=== PATIENT | female | born 1980 | race Caucasian/White ===

== ENCOUNTER 2023-04-29 20:02 | Outpatient (REF) | payer OTHER, SELFPAY ==
[2023-05-02 15:10] LABS: Age Gdln ACOG Testing Note (.); HPV Aptima Negative (Negative); IGP, Aptima HPV, rfx 16/18,45 Note (.)
== END 2023-04-29 20:03 | disposition home or self-care (01) ==
LOC: LAB 20:02
PROVIDERS: PCP Family Medicine; Visit Provider Obstetrics & Gynecology
DX: Z12.4 Encounter for screening for malignant neoplasm of cervix (principal)
CPT/HCPCS: 87624; G0145

== ENCOUNTER 2023-05-10 08:00 | Outpatient (OUT) | payer OTHER, SELFPAY ==
--- NOTE | 2023-05-10 08:25 | MM_ITS ---
Patient: KASSANDRA ARIZMENDI Exam Date: 05/10/2023 : 1980 Gender:F Ordering : DR Brice Day . Admission #: [id number] Family : DR Louie Yates . Order #: [id number] CLICK HERE TO VIEW EXAM RADIOLOGY REPORT PROCEDURE: MM TOMOSYNTHESIS SCREENING BI COMPARISON: MG MAMM SCREEN 3D [place] CAD, 05/07/2022. INDICATIONS: Screening Calculator Name NCI Breast Cancer Risk Assessment Tool 5 Year Breast Cancer Risk 0.70% Lifetime Breast Cancer Risk 11.00% Personal Breast Cancer No Personal Ovarian Cancer No Treatments None Family Cancers Mother with rectal cancer at age 45. LOCATION: [facility] BREAST COMPOSITION: Extremely dense, which lowers the sensitivity of mammography. FINDINGS: DIAGNOSTIC CATEGORY 1--NEGATIVE. NO CHANGE FROM COMPARISON ASSESSMENT. Scattered benign-appearing calcifications are present. RIGHT BREAST: No significant suspicious finding. LEFT BREAST: No significant suspicious finding. RECOMMENDATIONS: ROUTINE MAMMOGRAM AND CLINICAL EVALUATION IN 12 MONTHS. PLEASE NOTE: A NORMAL MAMMOGRAM DOES NOT EXCLUDE THE POSSIBILITY OF BREAST CANCER. A CLINICALLY SUSPICIOUS PALPABLE LUMP SHOULD BE BIOPSIED. Dictated by: Devonte Perdomo MD on 05/10/2023 at 12:55 Approved by: Devonte Perdomo MD on 05/10/2023 at 12:56
== END 2023-05-10 08:01 | disposition home or self-care (01) ==
LOC: MAMMO 08:02
PROVIDERS: PCP Family Medicine; Visit Provider Obstetrics & Gynecology
DX: Z12.31 Encounter for screening mammogram for malignant neoplasm of breast (principal); Z80.0 Family history of malignant neoplasm of digestive organs
CPT/HCPCS: 77063; 77067

== ENCOUNTER 2024-05-04 21:16 | Outpatient (REF) | payer OTHER, SELFPAY | END 2024-05-04 21:17 | disposition home or self-care (01) | LOC: LAB 21:16 | PROVIDERS: Visit Provider Obstetrics & Gynecology | DX: Z01.419 Encounter for gynecological examination (general) (routine) without abnormal findings (principal) | CPT/HCPCS: 87624; 88175 ==

== ENCOUNTER 2024-05-13 07:19 | Outpatient (OUT) | payer OTHER, SELFPAY ==
--- NOTE | 2024-05-13 | MM_ITS ---
Patient Name: KASSANDRA ARIZMENDI MR#: [id number] : 1980 Exam Date: 05/13/2024 Ordering Doctor: DR Brice Day . RADIOLOGY REPORT PROCEDURE: MM TOMOSYNTHESIS SCREENING BI COMPARISON: MM TOMOSYNTHESIS SCREENING BI, 05/10/2023. MG MAMM SCREEN 3D [place] CAD, 05/07/2022. INDICATIONS: Screening for malignant neoplasm Calculator Name NCI Breast Cancer Risk Assessment Tool 5 Year Breast Cancer Risk 0.70% Lifetime Breast Cancer Risk 10.90% Personal Breast Cancer No Personal Ovarian Cancer No Treatments None Family Cancers Mother with rectal cancer at age 45. LOCATION: [facility] BREAST COMPOSITION: The breasts are extremely dense, which lowers the sensitivity of mammography. FINDINGS: DIAGNOSTIC CATEGORY 1--NEGATIVE. RIGHT BREAST: No significant suspicious finding. No significant change has occurred. LEFT BREAST: No significant suspicious finding. No significant change has occurred. RECOMMENDATIONS: ROUTINE MAMMOGRAM AND CLINICAL EVALUATION IN 12 MONTHS. PLEASE NOTE: A NORMAL MAMMOGRAM DOES NOT EXCLUDE THE POSSIBILITY OF BREAST CANCER. A CLINICALLY SUSPICIOUS PALPABLE LUMP SHOULD BE BIOPSIED. Dictated by: Yazan Steward M.D. on 05/13/2024 at 15:04 Approved by: Yazan Steward M.D. on 05/13/2024 at 15:07
--- OUTSIDE RECORDS SUMMARY | 2024-05-13 07:21 | XMS_ITS | CCD ---
Author Organization [facility] Care Team Providers Care Formulator Name Role Phone PERRI, DR MEGHA Swan Admitting Unavailable NADERER, DR MEGHA Swan Attending Unavailable NADERER, DR MEGHA Swan Consulting Unavailable NADERER, DR MEGHA Swan Primary Care Unavailable SUKHDEEP, DR MUNOZ Consulting Unavailable NADERER, DR MEGHA Swan Primary Care Unavailable SUKHDEEP, DR MUNOZ Admitting Unavailable SUKHDEEP, DR MUNOZ Attending Unavailable NADERER, DR MEGHA Swan Primary Care Unavailable KING SALMON, DR LENORE Looney Consulting Unavailable SUKHDEEP, DR MUNOZ Admitting Unavailable SUKHDEEP, DR MUNOZ Attending Unavailable SUKHDEEP, DR MUNOZ Consulting Unavailable APLINGYOSVANY Attending Unavailable APLINGYOSVANY Referring Unavailable TAMMY TARANGO Attending Unavailable Allergies Allergy Classification Reported Allergen(s) Allergy Type Date of Onset Reaction(s) Facility (1 source) Cefaclor Drug Allergy 1980 [facility] Repository Problems Problem Classification Problem Date Documented Date Episodic/Chronic Immunizations and screening for infectious disease (1 source) Encounter for screening for human papillomavirus (HPV); Translations: [ENC SCREENING HUMAN PAPILLOMAVIRUS] Onset: 04-25-2022 Episodic Nutritional deficiencies (1 source) Vitamin D deficiency, unspecified; Translations: [VITAMIN D DEFICIENCY UNSPECIFIED] Onset: 05-30-2022 Chronic Other screening for suspected conditions (not mental disorders or infectious disease) (8 sources) Encounter for screening mammogram for malignant neoplasm of breast; Translations: [Encounter for screening for malignant neoplasm of cervix] Onset: 04-24-2022 Episodic Residual codes; unclassified (1 source) Family history of malignant neoplasm of other organs or systems; Translations: [FAM HX MALIG NEOPLASM OTH ORGN/SYS] Onset: 05-09-2022 Episodic Results Test Name Value Interpretation Reference Range Facility CBC AUTO DIFFon 05-24-2022 BASO # 0.0 103/ul Normal 0.0-0.1 [facility] Comment on above: Performed By: #### C BC #### [facility] [address] [place] [address] Dr. Mounika Brown Basophils/100 WBC (Bld) 0.4 % Normal 0.2-2.0 [facility] Comment on above: Performed By: #### C BC #### [facility] [address] [place] [address] Dr. Mounika Brown EO # 0.2 103/ul Normal 0.0-0.7 [facility] Comment on above: Performed By: #### C BC #### [facility] [address] [place] [address] Dr. Mounika Brown Eosinophils/100 WBC (Bld) 2.2 % Normal 0.9-7.0 [facility] Comment on above: Performed By: #### C BC #### [facility] [address] [place] [address] Dr. Mounika Brown Erythrocyte distribution width (RBC) [Ratio] 12.8 % Normal 11.0-15.0 [facility] Comment on above: Performed By: #### C BC #### [facility] [address] [place] [address] Dr. Mounika Brown Hematocrit (Bld) [Volume fraction] 42.6 % Normal 36.0-48.0 [facility] Comment on above: Performed By: #### C BC #### [facility] [address] [place] [address] Dr. Mounika Brown Hemoglobin (Bld) [Mass/Vol] 14.0 g/dL Normal 12.0-16.0 [facility] Comment on above: Performed By: #### C BC #### [facility] [address] [place] [address] Dr. Mounika Brown IG # 0.02 10e3/ul Normal 0.00-0.03 [facility] Comment on above: Performed By: #### C BC #### [facility] [address] [place] [address] Dr. Mounika Brown IG % 0.3 % Normal 0.0-0.5 [facility] Comment on above: Performed By: #### C BC #### [facility] [address] [place] [address] Dr. Mounika Brown LYMPH # 3.1 103/ul Normal 1.2-3.8 [facility] Comment on above: Performed By: #### C BC #### [facility] [address] [place] [address] Dr. Mounika Brown Lymphocytes/100 WBC (Bld) 43.8 % Normal 20.5-60.0 [facility] Comment on above: Performed By: #### C BC #### [facility] [address] [place] [address] Dr. Mounika Brown MANUAL DIFF REQ NO Normal [facility] Comment on above: Performed By: #### C BC #### [facility] [address] [place] [address] Dr. Mounika Brown MCH (RBC) [Entitic mass] 29.7 pg Normal 26.7-34.0 [facility] Comment on above: Performed By: #### C BC #### [facility] [address] [place] [address] Dr. Mounika Brown MCHC (RBC) [Mass/Vol] 32.9 g/dL Normal 29.9-35.2 [facility] Comment on above: Performed By: #### C BC #### [facility] [address] [place] [address] Dr. Mounika Brown MCV (RBC) [Entitic vol] 90.3 fL Normal 81.0-99.0 [facility] Comment on above: Performed By: #### C BC #### [facility] [address] [place] [address] Dr. Mounika Brown MONO # 0.5 103/ul Normal 0.3-0.8 [facility] Comment on above: Performed By: #### C BC #### [facility] [address] [place] [address] Dr. Mounika Brown Monocytes/100 WBC (Bld) 6.8 % Normal 1.7-12.0 [facility] Comment on above: Performed By: #### C BC #### [facility] [address] [place] [address] Dr. Mounika Brown NEUT # 3.3 103/ul Normal 1.4-6.5 [facility] Comment on above: Performed By: #### C BC #### [facility] [address] [place] [address] Dr. Mounika Brown Neutrophils/100 WBC (Bld) 46.5 % Normal 43.0-75.0 [facility] Comment on above: Performed By: #### C BC #### [facility] [address] [place] [address] Dr. Mounika Brown Platelet mean volume (Bld) [Entitic vol] 10.8 fL Normal 9.5-13.5 [facility] Comment on above: Performed By: #### C BC #### [facility] [address] [place] [address] Dr. Mounika Brown PLT 266 103/ul Normal 150-450 [facility] Comment on above: Performed By: #### C BC #### [facility] [address] [place] [address] Dr. Mounika Brown RBC 4.72 106/ul Normal 4.20-5.40 [facility] Comment on above: Performed By: #### C BC #### [facility] [address] [place] [address] Dr. Mounika Brown WBC 7.2 103/ul Normal 4.0-11.0 [facility] Comment on above: Performed By: #### C BC #### [facility] [address] [place] [address] Dr. Mounika Brown GLYCOHEMOGLOBIN A1Con 2021 ADA RECOMMENDATION SEE BELOW Normal [facility] Comment on above: Result Comment: ADA RECOMMENDED LIMIT 4.0 - 6.0 ADA THERAPEUTIC TARGET < 7.0 ACTION SUGGESTED > 7.0 Performed By: #### A 1C #### [facility] [address] [place] [address] Dr. Mounika Brown Glucose [Mass/Vol] 105 mg/dL Normal [facility] Comment on above: Performed By: #### A 1C #### [facility] [address] [address] [address] Mounika Brown HbA1c (Bld) [Mass fraction] 5.3 % Normal 4.5-6.2 [facility] Comment on above: Performed By: #### A 1C #### [facility] [address] [address] [address] Mounika Brown LIPID PROFILEon 05-24-2022 CHOL-HDL RATIO NORM SEE BELOW Normal [facility] Comment on above: Result Comment: 3.3 - 4.4 LOW RISK 4.4 - 7.1 AVERAGE RISK 7.1 - 11.0 MODERATE RISK >11.0 HIGH RISK Performed By: #### L IVER, LIPID, BMP, TSH #### [facility] [address] [address] [address] Mounika Brown Cholesterol [Mass/Vol] 237 mg/dL Critically high <=200 [facility] Comment on above: Performed By: #### L IVER, LIPID, BMP, TSH #### [facility] [address] [address] [address] Mounika Brown Cholesterol in HDL [Mass/Vol] 89 mg/dL Critically high 40-60 [facility] Comment on above: Performed By: #### L IVER, LIPID, BMP, TSH #### [facility] [address] [address] [address] Mounika Brown Cholesterol in LDL [Mass/Vol] 138.2 mg/dL Normal [facility] Comment on above: Performed By: #### L IVER, LIPID, BMP, TSH #### [facility] [address] [address] [address] Mounika Brown Cholesterol.total/Cho lesterol in HDL [Mass ratio] 2.7 {ratio} Normal [facility] Comment on above: Performed By: #### L IVER, LIPID, BMP, TSH #### [facility] [address] [address] [address] Mounika Brown HDL NORMAL > or = 60 mg/dl - LO W CARDIOVASCULAR RISK <40 mg/dl - HIGH CARDIOVASCULAR RISK Normal [facility] Comment on above: Performed By: #### L IVER, LIPID, BMP, TSH #### [facility] [address] [address] [address] Mounika Brown LDL CALC NORMAL SEE BELOW Normal [facility] Comment on above: Result Comment: <100 mg/dl OPTIMAL 100 - 129 mg/dl NEAR OR ABOVE OPTIMAL 130 - 159 mg/dl BORDERLINE HIGH 160 - 189 mg/dl HIGH >190 mg/dl VERY HIGH Performed By: #### L IVER, LIPID, BMP, TSH #### [facility] [address] [address] [address] Mounika Brown Triglyceride [Mass/Vol] 49 mg/dL Normal <=150 [facility] Comment on above: Performed By: #### L IVER, LIPID, BMP, TSH #### [facility] [address] [address] [address] Mounika Brown VLDL CALC 9.8 mg/dL Normal [facility] Comment on above: Performed By: #### L IVER, LIPID, BMP, TSH #### [facility] [address] [address] [address] Mounika Brown LIVER PROFILEon 05-24-2022 Albumin [Mass/Vol] 4.3 g/dL Normal 3.4-5.0 [facility] Comment on above: Performed By: #### L IVER, LIPID, BMP, TSH #### [facility] [address] [address] [address] Mounika Brown Albumin/Globulin [Mass ratio] 1.2 {ratio} Normal [facility] Comment on above: Performed By: #### L IVER, LIPID, BMP, TSH #### [facility] [address] [address] [address] Mounika Brown ALP [Catalytic activity/Vol] 49 U/L Normal 46-116 [facility] Comment on above: Performed By: #### L IVER, LIPID, BMP, TSH #### [facility] [address] [address] [address] Mounika Brown ALT [Catalytic activity/Vol] 17 U/L Normal 14-59 [facility] Comment on above: Performed By: #### L IVER, LIPID, BMP, TSH #### [facility] [address] [address] [address] Mounika Brown AST [Catalytic activity/Vol] 19 U/L Normal 15-37 [facility] Comment on above: Performed By: #### L IVER, LIPID, BMP, TSH #### [facility] [address] [address] [address] Mounika Brown BILI, CONJUGATED 0.2 mg/dL Normal 0.0-0.2 [facility] Comment on above: Performed By: #### L IVER, LIPID, BMP, TSH #### [facility] [address] [place] [address] Dr. Mounika Brown Bilirubin [Mass/Vol] 1.0 mg/dL Normal 0.2-1.0 [facility] Comment on above: Performed By: #### L IVER, LIPID, BMP, TSH #### [facility] [address] [place] [address] Dr. Mounika Brown Globulin (S) [Mass/Vol] 3.6 g/dL Normal [facility] Comment on above: Performed By: #### L IVER, LIPID, BMP, TSH #### [facility] [address] [place] [address] Dr. Mounika Brown Protein [Mass/Vol] 7.9 g/dL Normal 6.4-8.2 [facility] Comment on above: Performed By: #### L IVER, LIPID, BMP, TSH #### [facility] [address] [place] [address] Dr. Mounika Brown PROF CHEM 8 (BAS METB)on Anion gap [Moles/Vol] 14.2 mmol/L Normal [facility] Comment on above: Performed By: #### L IVER, LIPID, BMP, TSH #### [facility] [address] [place] [address] Dr. Mounika Brown Calcium [Mass/Vol] 9.3 mg/dL Normal 8.5-10.1 [facility] Comment on above: Performed By: #### L IVER, LIPID, BMP, TSH #### [facility] [address] [address] [address] Mounika Brown Chloride [Moles/Vol] 102 mmol/L Normal 98-107 [facility] Comment on above: Performed By: #### L IVER, LIPID, BMP, TSH #### [facility] [address] [place] [address] Dr. Mounika Brown CO2 [Moles/Vol] 24.1 mmol/L Normal 21.0-32.0 [facility] Comment on above: Performed By: #### L IVER, LIPID, BMP, TSH #### [facility] [address] [place] [address] Dr. Mounika Brown Creatinine [Mass/Vol] 0.81 mg/dL Normal 0.55-1.02 [facility] Comment on above: Performed By: #### L IVER, LIPID, BMP, TSH #### [facility] [address] [place] [address] Dr. Mounika Brown EGFR-AF ENGLISH >60 Normal >=60 [facility] Comment on above: Performed By: #### L IVER, LIPID, BMP, TSH #### [facility] [address] [place] [address] Dr. Mounika Brown EGFR-NON AF ENGLISH >60 Normal >=60 [facility] Comment on above: Performed By: #### L IVER, LIPID, BMP, TSH #### [facility] [address] [place] [address] Dr. Mounika Brown Glucose [Mass/Vol] 80 mg/dL Normal 74-106 [facility] Comment on above: Performed By: #### L IVER, LIPID, BMP, TSH #### [facility] [address] [place] [address] Dr. Mounika Brown Potassium [Moles/Vol] 3.3 mmol/L Critically low 3.5-5.1 [facility] Comment on above: Performed By: #### L IVER, LIPID, BMP, TSH #### [facility] [address] [place] [address] Dr. Mounika Brown Sodium [Moles/Vol] 137 mmol/L Normal 136-145 [facility] Comment on above: Performed By: #### L IVER, LIPID, BMP, TSH #### [facility] [address] [place] [address] Dr. Mounika Brown Urea nitrogen [Mass/Vol] 17.0 mg/dL Normal 7.0-18.0 [facility] Comment on above: Performed By: #### L IVER, LIPID, BMP, TSH #### [facility] [address] [place] [address] Dr. Mounika Brown Urea nitrogen/Creatinine [Mass ratio] 21.0 mg/mg Normal [facility] Comment on above: Performed By: #### L IVER, LIPID, BMP, TSH #### [facility] [address] [place] [address] Dr. Mounika Brown TSHon 05-24-2022 TSH 2.290 uIU/mL Normal 0.358-3.[address] [facility] Comment on above: Performed By: #### L IVER, LIPID, BMP, TSH #### [facility] [address] [place] [address] Dr. Mounika Brown VITAMIN D 25 OHon 05-24-2022 VIT D 25-OH 29.1 ng/mL Normal [facility] Comment on above: Performed By: #### V ITAD #### [facility] [address] [place] [address] Dr. Mounika Brown VIT D RANGES SEE BELOW Normal [facility] Comment on above: Result Comment: <20 ng/mL Vit D deficient 20 - <30 ng/mL Vit D insufficient 30 - 100 ng/mL Vit D sufficient >100 ng/mL Potential Toxicity Performed By: #### V ITAD #### [facility] [address] [place] [address] Dr. Mounika Brown MG MAMM SCREEN 3D WYATT CADon 05-07-2022 MG MAMM SCREEN 3D WYATT CAD Patient: KASSANDRA ARIZMENDI Exam Date: 05/07/2022 : 1980 Gender:F Ordering : DR TAMMY TARANGO . Admission #: [id number] Family : Order #: [id number] CLICK HERE TO VIEW EXAM RADIOLOGY REPORT PROCEDURE: MAMMOGRAM SCREENING 3D BILATERAL CAD COMPARISON: None. INDICATIONS: Screening mammography Calculator Name NCI Breast Cancer Risk Assessment Tool 5 Year Breast Cancer Risk 0.60% Lifetime Breast Cancer Risk 11.10% Personal Breast Cancer No Personal Ovarian Cancer No Treatments None Family Cancers Mother with retina cancer at age 45. LOCATION: [facility] BREAST COMPOSITION: Extremely dense, which lowers the sensitivity of mammography. FINDINGS: DIAGNOSTIC CATEGORY 1--NEGATIVE. Scattered benign-appearing calcifications are present. RIGHT BREAST: No significant suspicious finding. LEFT BREAST: No significant suspicious finding. RECOMMENDATIONS: ROUTINE MAMMOGRAM AND CLINICAL EVALUATION IN 12 MONTHS. PLEASE NOTE: A NORMAL MAMMOGRAM DOES NOT EXCLUDE THE POSSIBILITY OF BREAST CANCER. A CLINICALLY SUSPICIOUS PALPABLE LUMP SHOULD BE BIOPSIED. Dictated by: Lenore Perdomo MD on 05/07/2022 at 10:26 Approved by: Lenore Perdomo MD on 05/07/2022 at 10:27 Normal [facility] PAP ACOG PANEL 2: 30 to 65on 05-01-2022 . . Normal [facility] Comment on above: Result Comment: Perf ormed at: WB Performed By: #### [id number] #### [facility] [address] [place] [address] Dr. Mounika Brown Age Gdln ACOG Testing 30-65 Normal [facility] Comment on above: Performed By: #### [id number] #### [facility] [address] [place] [address] Dr. Mounika Brown DIAGNOSIS: Comment Normal [facility] Comment on above: Result Comment: NEGA TIVE FOR INTRAEPITHELIAL LESION OR MALIGNANCY. Performed at: WB Performed By: #### [id number] #### [facility] [address] [address] [address] Mounika Brown HPV Aptima Negative Normal Negative [facility] Comment on above: Result Comment: This nucleic acid amplification test detects fourteen high-risk HPV types (16,18,31,33,35,39,45,51,52,56,58,59,66,68) without differentiation. Performed at: =G Performed By: #### [id number] #### [facility] [address] [address] [address] Mounika Brown Methodology: Comment Normal [facility] Comment on above: Result Comment: This liquid based ThinPrep(R) pap test was screened with the use of an image guided system. Performed at: WB Performed By: #### [id number] #### [facility] [address] [address] [address] Mounika Brown Note: Comment Normal [facility] Comment on above: Result Comment: The Pap smear is a screening test designed to aid in the detection of premalignant and malignant conditions of the uterine cervix. It is not a diagnostic procedure and should not be used as the sole means of detecting cervical cancer. Both false-positive and false-negative reports do occur. . Performed at: WB Performed By: #### [id number] #### [facility] [address] [place] [address] Dr. Mounika Brown Performed by: Comment Normal [facility] Comment on above: Result Comment: Daniel Saravia, [employer] (ASCP) Performed at: WB Performed By: #### [id number] #### [facility] [address] [address] [address] Mounika Brown Specimen adequacy: Comment Normal [facility] Comment on above: Result Comment: Sati sfactory for evaluation. Endocervical and/or squamous metaplastic cells (endocervical component) are present. Performed at: WB Performed By: #### [id number] #### [facility] [address] [place] [address] Dr. Mounika Brown Encounters Encounter Date Encounter Type Care Provider Facility Start: 05-04-2024 End: 05-04-2024 ambulatory TAMMY TARANGO Not Available Start: 08-21-2023 End: 08-21-2023 ambulatory YOSVANY PARIS Not Available Start: 05-30-2022 Encounter for genera l adult medical examination without abnormal findings DR MEGHA RAYO [facility] Start: 05-24-2022 End: 05-25-[address] MEGHA RAYO Facility: Start: 05-24-2022 End: 05-25-2022 Encounter for general adult medical examination without abnormal findings DR MEGHA RAYO Facility:[facility] Start: 05-07-2022 End: 05-08-[address] MEGHA RAYO Facility:[facility] Start: 04-24-2022 End: 04-24-[address] TAMMY TARANGO Facility:[facility] Payers Date Payer Category Payer Unknown [id number] 2.16.84 [id number] 1980 Unknown [id number] 2.16.84 [id number] 1980 Unknown [id number] 2.16.84 [id number] 1980 Unknown [id number] 2.16.84 [id number] 1980 Unknown [id number] 2.16.84 [id number] 1980 Unknown [id number] 2.16.84 [id number] 1957 Unknown [id number] Summary Purpose Family History No Family History Records FoundNo Family History Records Found Advance Directives No Advanced Directives Records FoundNo Advanced Directives Records Found Additional Source Comments INFORMATION SOURCE (unrecogn ized section and content) DATE CREATED AUTHOR [facility]/31/2022 [facility] DATE CREATED AUTHOR 'S ORGANIZ ATION 05/04/2024 [facility] EPIC FOR RECORDS PERTAINING TO PATIENTS WHO ARE OR HAVE BEEN ENROLLED IN A CHEMICAL DEPENDENCY/SUBSTANCEABUSE PROGRAM, SOME INFORMATION MAY BE OMITTED. This clinical summary was aggregated from multiple sources. Caution should be exercised in using it in the provision of clinical care. This summary normalizes information from multiple sources, and as a consequence, information in this document may materially change the coding, format and clinical context of patient data. In addition, data may be omitted in some cases. CLINICAL DECISIONS SHOULD BE BASED ON THE PRIMARY CLINICAL RECORDS. [facility] [employer] [facility]. provides no warranty or guarantee of the accuracy or completeness of information in this document.
== END 2024-05-13 07:20 | disposition home or self-care (01) ==
LOC: MAMMO 07:19
PROVIDERS: Visit Provider Obstetrics & Gynecology
DX: Z12.31 Encounter for screening mammogram for malignant neoplasm of breast (principal); Z80.8 Family history of malignant neoplasm of other organs or systems
CPT/HCPCS: 77063; 77067

== ENCOUNTER 2025-06-08 12:02 | Outpatient (REF) | payer OTHER, SELFPAY ==
--- OUTSIDE RECORDS SUMMARY | 2025-06-08 08:30 | XMS_ITS | Encounter Summary ---
Author Organization [facility] Address [address] [facility] [place] [address] Care Team Providers Care Oil Rig Roughneck Name Role Phone Louie Yates MD Primary Care Provider [phone] Reason for Visit * ReasonCommentsGynecologic Exam Encounter Details DateTypeDepartmentCare Team (Latest Contact Info)Fhvrfebeacc67/04/2025 8:30 AM ESTOffice Visit [facility] [address] [place] [phone] Brice Day DO [address] [place] [address] Well woman exam with routine gynecological exam; Encounter for screening mammogram for malignant neoplasm of breast Social History Tobacco UseTypesPacks/DayYears UsedDateSmoking Tobacco: NeverSmokeless Tobacco: NeverAlcohol UseStandard Drinks/WeekCommentsYes0 (1 standard drink = 0.6 oz pure alcohol)Only on special occasionsCommentsNoSex and Gender Information ValueDate RecordedSex Assigned at BirthNot on fileLegal IdoTnlaek04/15/2023 6:55 PM EDTGender IdentityNot on fileSexual OrientationNot on filedocumented as of this encounter Last Filed Vital Signs Vital SignReadingTime TakenCommentsBlood Pressure--Pulse--Temperature-- Respiratory Rate--Oxygen Saturation--Inhaled Oxygen Concentration--Goxngb39.1 kg (148 lb)06/08/2025 8:37 AM LNGDmfzpn032.2 cm (5' 7 )06/08/2025 8:37 AM ESTBody Mass Index23.18108/08/2024 8:37 AM ESTdocumented in this encounter Plan of Treatment DateTypeDepartmentCare Team (Latest Contact Info)Xgcyhxfyxar36/10/2026 8:30 AM ESTProcedure Visit [facility] [address] [facility] [place] [address] Brice Day DO [address] [facility] [place] [address] NameTypePriorityAssociated DiagnosesOrder ScheduleBilateral screening mammogram ImagingRoutine Encounter for screening mammogram for malignant neoplasm of breast Expected: 06/08/2025 (Approximate), Expires: 08/08/2026THIN PREP TIS PAP AND HR HPV DNAPathology and CytologyRoutine Well woman exam with routine gynecological exam Ordered: 06/08/2025documented as of this encounter Visit Diagnoses Diagnosis Well woman exam with routine gynecological exam Routine gynecological examination Encounter for screening mammogram for malignant neoplasm of breast documented in this encounter Care Teams Team MemberRelationshipSpecialtyStart DateEnd Date Louie Yates MD PCP - GeneralFamily Medicine09/05/23documented as of this encounter
--- OUTSIDE RECORDS SUMMARY | 2025-06-08 12:05 | XMS_ITS | Clinical Summary ---
Author Organization [facility] Address [address] [place] [address] Care Team Providers Care Fruit Distributor Name Role Phone Louie Yates MD Primary Care Provider [phone] Allergies Active AllergyReactionsCriticalityNoted KhqgVgpsgunmQtmubleqHgtqilb92/25/2023 Other Reaction(s): Unknown Reaction Medications No known medications Active Problems No known active problems Encounters DateTypeDepartmentCare IrwlWeqbbkcnomw03/04/2025 8:30 AM ESTOffice Visit [facility] [address] [place] [address] Brice Day DO Well woman exam with routine gynecological exam; Encounter for screening mammogram for malignant neoplasm of xgqqvd3106/08/2025 Bamboo flowsheet [facility] [address] [place] [address] Brice Day DO 06/07/20256270Yueakn69/24/2025 7:30 AM EDTTreatment [facility] [address] [facility] [address] [place] [address] Nico Elkins, LEAD SYSTEMS DEVELOPER Right ankle pain, unspecified chronicity (Primary Dx); Retrocalcaneal bursitis, right; Mild ankle sprain, right, kkhmobb8804/28/2025amboo flowsheet [facility] [address] [place] [address] [place] [address] Nico Elkins, LEAD SYSTEMS DEVELOPER 04/28/20257707Wsuyxj41/18/2025 9:00 AM EDTEvaluation [facility] [address] [facility] [address] [place] [address] Kathryn Fernandez, PT Right ankle pain, unspecified chronicity (Primary Dx); Retrocalcaneal bursitis, right; Mild ankle sprain, right, gofdpob8904/22/2025Plan of Care Documentation [facility] [address] [facility] [address] [place] [address] 04/22/2025amboo flowsheet [facility] [address] [facility] [address] [place] [address] Kathryn Fernandez, PT 04/22/20257713Vavdbr97/03/2025 2:15 PM EDTOffice Visit [facility] [address] [facility] [place] [phone] Devonte Dillon, DO Right ankle pain, unspecified chronicity (Primary Dx); Retrocalcaneal bursitis, right; Mild ankle sprain, right, brtvnke4404/07/2025 11:05 AM EDTAncillary Procedure [facility] [address] [facility] [place] [address] 04/07/20259111Dqjgnx81/29/2025Travelfrom Last 3 Months Family History Medical HistoryRelationNameCommentsAnal CancerMotherCathierine RathbunDiabetes MotherCathierine RathbunRelationNameStatusCommentsFatherAliveMotherCathierine RathbunAlive Social History Tobacco UseTypesPacks/DayYears UsedDateSmoking Tobacco: NeverSmokeless Tobacco: Never Tobacco Cessation:Counseling Given: Not Answered Alcohol UseStandard Drinks/WeekCommentsYes0 (1 standard drink = 0.6 oz pure alcohol)Only on special occasionsCommentsNoSex and Gender Information ValueDate RecordedSex Assigned at BirthNot on fileLegal QntHmorhe44/15/2023 6:55 PM EDTGender IdentityNot on fileSexual OrientationNot on file Last Filed Vital Signs Vital SignReadingTime TakenCommentsBlood Owgtieml070/8209/ 8:35 AM EDT Pulse--Temperature--Respiratory Rate--Oxygen Saturation--Inhaled Oxygen Concentration--Zyvkne26.1 kg (148 lb)06/08/2025 8:37 AM EJLReftjv407.2 cm (5' 7 )06/08/2025 8:37 AM ESTBody Mass Index23.18108/08/2024 8:37 AM EST Plan of Treatment DateTypeDepartmentCare Team (Latest Contact Info)Veninxehfgw57/10/2026 8:30 AM ESTProcedure Visit [facility] [address] [facility] [place] [phone] Brice Day, [address] [facility] [place] [address] Procedures Procedure NamePriorityDate/TimeAssociated DiagnosisCommentsXR ANKLE 3+ VIEWS KCWHQDigbbnw93/03/2025 11:01 AM EDT Right ankle pain, unspecified chronicity from Last 3 Months Results * XR ankle 3+ views right (04/07/2025 11:01 AM EDT)Anatomical RegionLaterality ModalityLower Extremities, AnkleRightRadiographic ImagingSpecimen (Source) Anatomical Location / LateralityCollection Method / VolumeCollection Time Received Time Narrative 04/09/2025 7:40 AM EDT Imaging Result: Examination of the x-rays AP, lateral and oblique of the right ankle here today total of three views with permanent images are saved to the record coupled with previous films from [facility] in August of 2023 does show some spurring off the tip of the medial and lateral malleolus. ??Ankle mortise is well maintained. ?? No evidence of fracture or instability pattern. ?? Authorizing ProviderResult TypeResult StatusDavid A Pocos DOIMG XR PROCEDURES Final Result from Last 3 Months Insurance * Guarantor: Margoth Charles TypeRelation to PatientDate of BirthPhone Billing AddressPersonal/ZjzijiLtbq1980 [address] [address] Care Teams Team MemberRelationshipSpecialtyStart DateEnd Date Louie Yates MD PCP - GeneralFamily Medicine09/05/23
--- OUTSIDE RECORDS SUMMARY | 2025-06-08 12:05 | XMS_ITS | Encounter Summary ---
Author Organization [facility] Address [address] [facility] [place] [address] Care Team Providers Care Silver Steward Name Role Phone Louie Yates MD Primary Care Provider [phone] Encounter Details DateTypeDepartmentCare Team (Latest Contact Info)Zuwphfezhqd75/09/2024Clinisync Result Encounter [facility] External Department Unsolicited Brice Day, DO [address] [place], [place] [phone] Social History Tobacco UseTypesPacks/DayYears UsedDateSmoking Tobacco: NeverSmokeless Tobacco: NeverAlcohol UseStandard Drinks/WeekCommentsYes0 (1 standard drink = 0.6 oz pure alcohol)Only on special occasionsCommentsNoSex and Gender Information ValueDate RecordedSex Assigned at BirthNot on fileLegal VprBxgige93/15/2023 6:55 PM EDTGender IdentityNot on fileSexual OrientationNot on filedocumented as of this encounter Plan of Treatment DateTypeDepartmentCare Team (Latest Contact Info)Rvhylyxooiw88/10/2026 8:30 AM ESTProcedure Visit [facility] [address] [place] [address] Brice Day DO [address] [place] [address] documented as of this encounter Procedures Procedure NamePriorityDate/TimeAssociated DiagnosisCommentsMM TOMOSYNTHESIS SCREENING BI10/04/2024 3:08 PM EDT documented in this encounter Results * MM TOMOSYNTHESIS SCREENING BI (05/13/2024 3:08 PM EDT)Anatomical Region LateralityModalityOtherSpecimen (Source)Anatomical Location / Laterality Collection Method / VolumeCollection TimeReceived Time05/13/2024 3:08 PM EDT Narrative 05/13/2024 3:08 PM EDT [facility] ?[address] ? [place], [facility] ? Mammography Report ? Signed ? Patient: MAHL,MARGOTH L ?MR#: [id number] ?? : 1980 ?Acct:[id number] ?? Age/Sex: 44 / F ?ADM Date: 05/13/24 ?? Loc: MAMMO ? Attending Dr: Brice Day D.O. ? Ordering Physician: Brice Day D.O. ?Results: ? Date of Service: 05/13/24 ?Follow Up: ? Procedure(s): MM tomosynthesis screening BI ?? Accession Number(s): [id number] ? cc: Brice Day D.O.; Physician,Non-Staff M.D. ? Patient Name: ? MARGOTH MAHL ? MR#: [id number] ? : 1980 ? Exam Date: 05/13/2024 ?? Ordering Doctor: DR Brice Day . ? RADIOLOGY REPORT ? PROCEDURE: ? MM TOMOSYNTHESIS SCREENING BI ? COMPARISON: ? MM TOMOSYNTHESIS SCREENING BI, 05/10/2023. ??MG MAMM SCREEN 3D ?? [place] CAD, 05/07/2022. ? INDICATIONS: ? Screening for malignant neoplasm ? Calculator Name ? NCI Breast Cancer Risk Assessment Tool ?? 5 Year Breast Cancer Risk ? 0.70% ?? Lifetime Breast Cancer Risk ? 10.90% ?? Personal Breast Cancer ?No ?? Personal Ovarian Cancer ? No ?? Treatments ? None ?? Family Cancers ? Mother with rectal cancer at age 45. ? LOCATION: ? [facility] ? BREAST COMPOSITION: ? The breasts are extremely dense, which lowers the ?? sensitivity of mammography. ? FINDINGS: ? DIAGNOSTIC CATEGORY 1--NEGATIVE. ? RIGHT BREAST: ??No significant suspicious finding. ??No significant change has ?? occurred. ? LEFT BREAST: ??No significant suspicious finding. ??No significant change has ?? occurred. ? RECOMMENDATIONS: ? ROUTINE MAMMOGRAM AND CLINICAL EVALUATION IN 12 MONTHS. ? PLEASE NOTE: ??A NORMAL MAMMOGRAM DOES NOT EXCLUDE THE POSSIBILITY OF BREAST ?? CANCER. ??A CLINICALLY SUSPICIOUS PALPABLE LUMP SHOULD BE BIOPSIED. ? Dictated by: Yazan Steward M.D. on 05/13/2024 at 15:04 ? Approved by: Yazan Steward M.D. on 05/13/2024 at 15:07 ? Dictated By: ?Zieber,Yazan M.D. ? Signed By: ?05/13/24 1508 ? DD/ 1508 ? TD/TT: ? Land Inspector: Procedure Note Radiology, Radiologist, MD - 05/13/2024 [place] [address] Mammography Report Signed Patient: MARGOTH ARIZMENDI LMR#: [id number] : 1980Acct:[id number] Age/Sex: 44 / FADM Date: 05/13/24 Loc: MAMMO Attending Dr: Brice Day D.O. Ordering Physician: Brice Day D.O.Results: Date of Service: 05/13/24Follow Up: Procedure(s): MM tomosynthesis screening BI Accession Number(s): [id number] cc: Brice Day D.O.; Physician,Non-Staff Concepción Patient Name: MARGOTH ARIZMENDI MR#: [id number] : 1980 Exam Date: 05/13/2024 Ordering Doctor: DR Brice Day . RADIOLOGY REPORT PROCEDURE: MM TOMOSYNTHESIS SCREENING BI COMPARISON: MM TOMOSYNTHESIS SCREENING BI, 05/10/2023. MG MAMM LMXKVF5R [place] CAD, 05/07/2022. INDICATIONS: Screening for malignant neoplasm Calculator Name NCI Breast Cancer Risk Assessment Tool 5 Year Breast Cancer Risk 0.70% Lifetime Breast Cancer Risk 10.90% Personal Breast Cancer No Personal Ovarian Cancer No Treatments None Family Cancers Mother with rectal cancer at age 45. LOCATION: [facility] BREAST COMPOSITION: The breasts are extremely dense, which lowers the sensitivity of mammography. FINDINGS: DIAGNOSTIC CATEGORY 1--NEGATIVE. RIGHT BREAST: No significant suspicious finding. No significant changehas occurred. LEFT BREAST: No significant suspicious finding. No significant changehas occurred. RECOMMENDATIONS: ROUTINE MAMMOGRAM AND CLINICAL EVALUATION IN 12 MONTHS. PLEASE NOTE: A NORMAL MAMMOGRAM DOES NOT EXCLUDE THE POSSIBILITY OFBREAST CANCER. A CLINICALLY SUSPICIOUS PALPABLE LUMP SHOULD BE BIOPSIED. Dictated by: Yazan Steward M.D. on 05/13/2024 at 15:04 Approved by: Yazan Steward M.D. on 05/13/2024 at 15:07 Dictated By: Yazan Steward M.D. Signed By:05/13/24 1508 DD/ 1508 TD/TT: Land Inspector: Authorizing ProviderResult TypeResult StatusCorey Barb DOCLINISYNC IMAGINGFinal Result documented in this encounter Visit Diagnoses Not on filedocumented in this encounter Care Teams Team MemberRelationshipSpecialtyStart DateEnd Date Louie Yates MD PCP - GeneralFamily Medicine09/05/23documented as of this encounter
--- OUTSIDE RECORDS SUMMARY | 2025-06-08 12:05 | XMS_ITS | Encounter Summary ---
Author Organization [facility] Address [address] [facility] [place] [address] Care Team Providers Care Patternmaker All Around Name Role Phone Louie Yates MD Primary Care Provider [phone] Encounter Details DateTypeDepartmentCare Team (Latest Contact Info)Addgvqjeerl59/04/2025amboo flowsheet [facility] [address] [place] [address] rBice Day, DO [address] [facility] [address] [place], [place] [address] Social History Tobacco UseTypesPacks/DayYears UsedDateSmoking Tobacco: NeverSmokeless Tobacco: NeverAlcohol UseStandard Drinks/WeekCommentsYes0 (1 standard drink = 0.6 oz pure alcohol)Only on special occasionsCommentsNoSex and Gender Information ValueDate RecordedSex Assigned at BirthNot on fileLegal JzmPpcdmm10/15/2023 6:55 PM EDTGender IdentityNot on fileSexual OrientationNot on filedocumented as of this encounter Plan of Treatment DateTypeDepartmentCare Team (Latest Contact Info)Tlgsfcrbmeo13/10/2026 8:30 AM ESTProcedure Visit [facility] [address] [place] [address] Brice Day, DO [address] [place], [facility] documented as of this encounter Visit Diagnoses Not on filedocumented in this encounter Care Teams Team MemberRelationshipSpecialtyStart DateEnd Date Louie Yates MD PCP - GeneralFamily Medicine09/05/23documented as of this encounter
--- OUTSIDE RECORDS SUMMARY | 2025-06-08 12:05 | XMS_ITS | Encounter Summary ---
Author Organization [facility] Address [address] [facility] [place] [address] Care Team Providers Care Core Inspector Name Role Phone Louie Yates MD Primary Care Provider [phone] Encounter Details DateTypeDepartmentCare Team (Latest Contact Info)Zksamzbawlt49/03/2025Travel Social History Tobacco UseTypesPacks/DayYears UsedDateSmoking Tobacco: NeverSmokeless Tobacco: NeverAlcohol UseStandard Drinks/WeekCommentsYes0 (1 standard drink = 0.6 oz pure alcohol)Only on special occasionsCommentsNoSex and Gender Information ValueDate RecordedSex Assigned at BirthNot on fileLegal CgxYqtypk28/15/2023 6:55 PM EDTGender IdentityNot on fileSexual OrientationNot on filedocumented as of this encounter Plan of Treatment DateTypeDepartmentCare Team (Latest Contact Info)Ajgvcobrqnt48/10/2026 8:30 AM ESTProcedure Visit [facility] [address] [place] [phone] Brice Day DO [address] [facility] [address] [place], [place] [phone] documented as of this encounter Visit Diagnoses Not on filedocumented in this encounter Care Teams Team MemberRelationshipSpecialtyStart DateEnd Date Louie Yates MD PCP - GeneralFamily Medicine09/05/23documented as of this encounter
--- OUTSIDE RECORDS SUMMARY | 2025-06-08 12:08 | XMS_ITS | CCD ---
Author Organization [facility] Care Team Providers Care Refrigeration Operator Name Role Phone PERRI, DR LOUIE Swan Admitting Unavailable NADERER, DR LOUIE Swan Attending Unavailable NADERER, DR LOUIE Swan Consulting Unavailable NADERER, DR LOUIE Swan Primary Care Unavailable BARB, DR MUNOZ Consulting Unavailable NADERER, DR LOUIE Swan Primary Care Unavailable BARB, DR MUNOZ Admitting Unavailable BARB, DR MUNOZ Attending Unavailable NADERER, DR LOUIE Swan Primary Care Unavailable [place], DR LENORE Looney Consulting Unavailable BARB, DR MUNOZ Admitting Unavailable BARB, DR MUNOZ Attending Unavailable BARB, DR MUNOZ Consulting Unavailable Louie Yates MD Primary Care Provider [phone] Ly DOGinny Attending Provider Ly Ginny BISHOP Referring Provider Louie Yates MD Primary Care Provider [phone] Maru Ginny L Consulting Unavailable Ginny Mahoney Attending Unavailable Ginny Mahoney Referring Unavailable Louie Yates Primary Care Unavailable Ginny Mahoney Admitting Unavailable Louie Yates MD Primary Care Provider NICO SALAZAR Attending Unavailable POCOSLENORE Referring Unavailable ANA FERNANDEZ Attending Unavailable POCOS, LENORE Swan Referring Unavailable POCOS, LENORE Swan Attending Unavailable POCOSLENORE Referring Unavailable TAMMY DAY Attending Unavailable Allergies Allergy ClassificationReported Allergen(s)Allergy TypeDate of OnsetReaction(s) Facility (1 source)CefaclorDrug Iayhtkx99-27-3090Cmk [facility] Repository (12 sources)CefaclorDrug Entqkof78-00-2998RpttqlaFPFU Healthcare (1 source)CefaclorDrug Cicpktt88-46-8149ZhstobtcoUniversity Hospitals Conneaut [facility] Repository Medications Current Medications MedicationDrug Class(es)DatesSig (Normalized)Sig (Original)meloxicam 7.5 mg oral tablet (6 sources)Nonsteroidal Anti-inflammatory DrugStart: 04-07-2025 End: 93-95-9512gqww 1 tablet by mouth once daily at mealtimemeloxicam (Mobic) 7.5 MG tablet Indications: Right ankle pain, unspecified chronicity , Retrocalcaneal bursitis, right , Mild ankle sprain, right, sequela Take 1 tablet (7.5 mg) by mouth Daily With food. 30 tablet 2 04/07/2025 05/07/2025 Active Problems Active Problems Problem ClassificationProblemDateDocumented DateEpisodic/ChronicImmunizations and screening for infectious disease (1 source)Encounter for screening for human papillomavirus (HPV); Translations: [ENC SCREENING HUMAN PAPILLOMAVIRUS]Onset: 50-07-0381YilicqpjUzvprowdilj deficiencies (1 source)Vitamin D deficiency, unspecified; Translations: [VITAMIN D DEFICIENCY UNSPECIFIED]Onset: 46-21-9339XfvbupmGfodb connective tissue disease (6 sources)Retrocalcaneal bursitis of right foot; Translations: [Other enthesopathy of right foot and ankle]04-97-1874SbqlfgnnEhkut non-traumatic joint disorders (6 sources)Ankle pain; Translations: [Pain in right ankle and joints of right foot]46-12-3163DnesiaqjJsahf screening for suspected conditions (not mental disorders or infectious disease) (11 sources)Encounter for screening mammogram for malignant neoplasm of breast; Translations: [Encounter for screening for malignant neoplasm of cervix]Onset: 65-58-7617QmuhwmwsWuzmiyav codes; unclassified (1 source)Family history of malignant neoplasm of other organs or systems; Translations: [FAM HX MALIG NEOPLASM OTH ORGN/SYS]Onset: 15-37-1357Zrxlvknr Sprains and strains (4 sources)Sprain of right ankle; Translations: [Sprain of unspecified ligament of right ankle, sequela]63-66-1014Yqqeyqqv Past or Other Problems Problem ClassificationProblemDateDocumented DateEpisodic/ChronicUnclassified (2 sources)Sprain of right kitsi51-72-3625 Results Test NameValueInterpretationReference RangeFacilityHCG ( test) IA.rapid Ql (U)Ordered By: Ginny Mahoney on 49-11-0947SAO ( test) Ql (U)Urine human chorionic gonadotropin (hCG) detection by immunoassayUniversity Hospitals Conneaut Medical CenterHCG,Urineon 08-96-7207Oujo HCG ( test) Ql (U)Negative NormalThe [facility] Physician GroupComment on above:Result Comment: PERFORMED BY: [place] [address] PATHOLOGIST MANAGER PAYMENT VJ HERNANDEZ M.D.Performed By: #### UHCG #### [place] [address] USAMM TOMOSYNTHESIS SCREENING BIon 64-47-4642IcjHouston, [place] [address] Mammography Report Signed Patient: KASSANDRA CHARLES MR#: [id number] : 1980 Acct:[id number] Age/Sex: 44 / F ADM Date: 05/13/24 Loc: MAMMO Attending Dr: Tammy Day D.O. Ordering Physician: Tammy Day D.O. Results: Date of Service: 05/13/24 Follow Up: Procedure(s): MM tomosynthesis screening BI Accession Number(s): [id number] cc: Tammy Day D.O.; Physician,Non-Staff MHugh Patient Name: KASSANDRA CHARLES MR#: [id number] : 1980 Exam Date: 05/13/2024 Ordering Doctor: DR Tammy Day . RADIOLOGY REPORT PROCEDURE: MM TOMOSYNTHESIS SCREENING BI COMPARISON: MM TOMOSYNTHESIS SCREENING BI, 05/10/2023. MG MAMM SCREEN 3D WYATT CAD, 05/07/2022. INDICATIONS: Screening for malignant neoplasm Calculator Name NCI Breast Cancer Risk Assessment Tool 5 Year Breast Cancer Risk 0.70% Lifetime Breast Cancer Risk 10.90% Personal Breast Cancer No Personal Ovarian Cancer No Treatments None Family Cancers Mother with rectal cancer at age 45. LOCATION: The [facility] BREAST COMPOSITION: The breasts are extremely dense, which lowers the sensitivity of mammography. FINDINGS: DIAGNOSTIC CATEGORY 1--NEGATIVE. RIGHT BREAST: No significant suspicious finding. No significant change has occurred. LEFT BREAST: No significant suspicious finding. No significant change has occurred. RECOMMENDATIONS: ROUTINE MAMMOGRAM AND CLINICAL EVALUATION IN 12 MONTHS. PLEASE NOTE: A NORMAL MAMMOGRAM DOES NOT EXCLUDE THE POSSIBILITY OF BREAST CANCER. A CLINICALLY SUSPICIOUS PALPABLE LUMP SHOULD BE BIOPSIED. Dictated by: Yazan Steward M.D. on 05/13/2024 at 15:04 Approved by: Yazan Steward M.D. on 05/13/2024 at 15:07 Dictated By: Yazan Steward M.D. Signed By: 05/13/24 1508 DD/ 1508 TD/TT: Kitchen Assistant:TBHRadiology, Radiologist, MD - 05/13/2024 [place] [address] Mammography Report Signed Patient: KASSANDRA CHARLES MR#: [id number] : 1980 Acct:[id number] Age/Sex: 44 / F ADM Date: 05/13/24 Loc: MAMMO Attending Dr: Tammy Day D.O. Ordering Physician: Tammy Day D.O. Results: Date of Service: 05/13/24 Follow Up: Procedure(s): MM tomosynthesis screening BI Accession Number(s): [id number] cc: Tammy Day D.O.; Physician,Non-Staff Concepción Patient Name: KASSANDRA CHARLES MR#: [id number] : 1980 Exam Date: 05/13/2024 Ordering Doctor: DR Tammy Day . RADIOLOGY REPORT PROCEDURE: MM TOMOSYNTHESIS SCREENING BI COMPARISON: MM TOMOSYNTHESIS SCREENING BI, 05/10/2023. MG MAMM SCREEN 3D WYATT CAD, 05/07/2022. INDICATIONS: Screening for malignant neoplasm Calculator Name NCI Breast Cancer Risk Assessment Tool 5 Year Breast Cancer Risk 0.70% Lifetime Breast Cancer Risk 10.90% Personal Breast Cancer No Personal Ovarian Cancer No Treatments None Family Cancers Mother with rectal cancer at age 45. LOCATION: The [facility] BREAST COMPOSITION: The breasts are extremely dense, which lowers the sensitivity of mammography. FINDINGS: DIAGNOSTIC CATEGORY 1--NEGATIVE. RIGHT BREAST: No significant suspicious finding. No significant change has occurred. LEFT BREAST: No significant suspicious finding. No significant change has occurred. RECOMMENDATIONS: ROUTINE MAMMOGRAM AND CLINICAL EVALUATION IN 12 MONTHS. PLEASE NOTE: A NORMAL MAMMOGRAM DOES NOT EXCLUDE THE POSSIBILITY OF BREAST CANCER. A CLINICALLY SUSPICIOUS PALPABLE LUMP SHOULD BE BIOPSIED. Dictated by: Yazan Steward M.D. on 05/13/2024 at 15:04 Approved by: Yazan Steward M.D. on 05/13/2024 at 15:07 Dictated By: Yazan Steward M.D. Signed By: 05/13/241507 DD/ 07 TD/TT: Kitchen Assistant: [facility] HospitalRadiology Study observation (narrative)[facility] TOMOSYNTHESIS SCREENING BIOrdered By: Radiologist Radiology on 55-53-4685[facility] Work Phone: IGP,APTIMA HPV,AGE GDLNon 52-55-1693ZCB GDLN ACOG TESTINGNote.[facility] County [facility] HospitalComment on above:TESTS RESULT FLAG UNITS REF RANGE LAB Clinician Provided Cytology Information Source.............Cervix;Endocervix No. of containers..01 ThinPrep Vial Age Algo ACOG Hilda... 32 FLAG LEGEND: L-Low Normal,H-High Normal,LL-Alert Low,HH-Alert High <-Panic Low,>-Panic High,A-Abnormal,AA-Critical Abnormal Performed at: 01 =[address] [place] [address] Lisa Whyte MD, HPV APTIMANegativeNegativeNOMS HealthcareComment on above:This nucleic acid amplification test detects fourteen high- risk HPV types (16,18,31,33,35,39,45,51,52,56,58,59,66,68) without differentiation. Performed at: =[address], [place] [id number] Rigging Up Man: Lisa Whyte MD, Phone: [phone] Performed at: [address] [id number] Rigging Up Man: Lisa Whyte MD, Phone: [phone] IGP, APTIMA HPV, RFX 16/18,45Note.NOMS HealthcareComment on above:TESTS RESULT FLAG UNITS REF RANGE LAB DIAGNOSIS: 02 NEGATIVE FOR INTRAEPITHELIAL LESION OR MALIGNANCY. Specimen adequacy: 02 Satisfactory for evaluation. Endocervical and/or squamous metaplastic cells (endocervical component) are present. Performed by: 02 Jesusita Olivia, Director Global Market Research (ASCP) . 02 Note: Note 02 The Pap smear is a screening test designed to aid in the detection of premalignant and malignant conditions of the uterine cervix. It is not a diagnostic procedure and should not be used as the sole means of detecting cervical cancer. Both false-positive and false-negative reports do occur. Test Methodology: Note 02 This liquid based ThinPrep(R) pap test was screened with the use of an image guided system. HPV Genotype Reflex Note 02 Criteria not met, HPV Genotype not performed. FLAG LEGEND: L-Low Normal,H-High Normal,LL-Alert Low,HH-Alert High <-Panic Low,>-Panic High,A-Abnormal,AA-Critical Abnormal Performed at: [address] [address] Lisa Whyte MD, BRUSH-SPATULA CERVIX ENDOCERVIX CLINISYNCNOThe [facility] AUTO DIFFon 06-26-5550HNFU #0.0 103/ulNormal0.0-0.1 [facility] Health AdministrationComment on above:Performed By: #### CBC #### [facility] [address] [address] [address] Mounika BrownBasophils/100 WBC (Bld)0.4 %Normal0.2-2.0[facility] Comment on above:Performed By: #### CBC #### [facility] [address] [address] [address] Mounika Leon #0.2 103/ulNormal0.0-0.7The [facility]bleComment on above: Performed By: #### CBC #### [facility] [address] [address] [address] Mounika Huertasosinophils/100 WBC (Bld)2.2 %Normal0.9-7.0[facility] Comment on above:Performed By: #### CBC #### [facility] [address] [address] [address] Mounika Huertasrythrocyte distribution width (RBC) [Ratio]12.8 %Htenpg41.0-15.0 [facility] AdministrationComment on above:Performed By: #### CBC #### [facility] [address] [place] [address] Dr. Mounika Ruffinatocrit (Bld) [Volume fraction]42.6 %Vxeddt99.0-48.0The [facility] PrebleComment on above:Performed By: #### CBC #### [facility] [address] [place] [address] Dr. Mounika BrownHemoglobin (Bld) [Mass/Vol]14.0 g/rWTphwiz02.0-16.0The [facility]bleComment on above:Performed By: #### CBC #### [facility] [address] [place] [address] Dr. Mounika BrownIG #0.02 10e3/ulNormal0.00-0.03The [facility]bleCommckenzie memorial hospital on above:Performed By: #### CBC #### [facility] [address] [place] [address] Dr. Mounika Nixon %0.3 %Normal0.0-0.5The [facility] PrebleComment on above: Performed By: #### CBC #### [facility] [address] [place] [address] Dr. Mounika Noel #3.1 103/ulNormal1.2-3.8The [facility]bleCommckenzie memorial hospital on above:Performed By: #### CBC #### [facility] [address] [place] [address] Dr. Mounika Lomelimphocytes/100 WBC (Bld)43.8 %Xillwl73.5-60.0The [facility] PrebleComment on above:Performed By: #### CBC #### [facility] [address] [place] [address] Dr. Mounika CamargoUAL DIFF REQNONormalThe [facility]bleComment on above: Performed By: #### CBC #### [facility] [address] [place] [address] Dr. Mounika Singh (RBC) [Entitic mass]29.7 yxSwngst80.7-34.0The [facility] PrebleComment on above:Performed By: #### CBC #### [facility] [address] [place] [address] Dr. Mounika Hicks (RBC) [Mass/Vol]32.9 g/rHItjmoe87.9-35.2The [facility] PrebleComment on above:Performed By: #### CBC #### [facility] [address] [place] [address] Dr. Mounika Hicks (RBC) [Entitic vol]90.3 hKYhjczk80.0-99.0The [facility] PrebleComment on above:Performed By: #### CBC #### [facility] [address] [place] [address] Dr. Mounika Cheng #0.5 103/ulNormal0.3-0.8The [facility]bleComment on above:Performed By: #### CBC #### [facility] [address] [place] [address] Dr. Mounika Andersonocytes/100 WBC (Bld)6.8 %Normal1.7-12.0The [facility] Comment on above:Performed By: #### CBC #### [facility] [address] [place] [address] Dr. Mounika Yoon #3.3 103/ulNormal1.4-6.5The [facility]bleComment on above:Performed By: #### CBC #### [facility] [address] [place] [address] Dr. Mounika Riverautrophils/100 WBC (Bld)46.5 %Oaznnv98.0-75.0The [facility] PrebleComment on above:Performed By: #### CBC #### [facility] [address] [place] [address] Dr. Mounika Daileylet mean volume (Bld) [Entitic vol]10.8 fLNormal9.5-13.5The [facility]bleComment on above:Performed By: #### CBC #### [facility] [address] [place] [address] Dr. Mounika RiddleT266 103/dqGneasm041-250Nda [facility]bleCommckenzie memorial hospital on above: Performed By: #### CBC #### [facility] [address] [place] [address] Dr. Mounika BrownRBC4.72 106/ulNormal4.20-5.40The [facility] on above:Performed By: #### CBC #### [facility] [address] [address] [address] Mounika BrownWBC7.2 103/ulNormal4.0-11.0[facility] on above: Performed By: #### CBC #### [facility] [address] [place] [address] Dr. Mounika BrownGLYCOHEMOGLOBIN A1Con 76-01-0395ROT RECOMMENDATIONSEE BELOWTrumbull Memorial HospitalCommckenzie memorial hospital on above:Result Comment: ADA RECOMMENDED LIMIT 4.0 - 6.0 ADA THERAPEUTIC TARGET < 7.0 ACTION SUGGESTED > 7.0Performed By: #### A1C #### [facility] [address] [place] [address] Dr. Mounika BrownGlucose [Mass/Vol]105 mg/dLNoBrown Memorial HospitalCommckenzie memorial hospital on above:Performed By: #### A1C #### [facility] [address] [place] [address] Dr. Mounika BrownHbA1c (Bld) [Mass fraction]5.3 %Normal4.5-6.2The [facility] on above:Performed By: #### A1C #### [facility] [address] [place] [address] Dr. Mounika BrownLIPID PROFILEon 99-15-2511PEZU-HDL RATIO NORMSEE [facility] HospitalCommckenzie memorial hospital on above:Result Comment: 3.3 - 4.4 LOW RISK 4.4 - 7.1 AVERAGE RISK 7.1 - 11.0 MODERATE RISK >11.0 HIGH RISKPerformed By: #### LIVER, LIPID, BMP, TSH #### [facility] [address] [place] [address] Dr. Mounika BrownCholesterol [Mass/Vol]237 mg/dLCritically high<=200The [facility]bleComment on above:Performed By: #### LIVER, LIPID, BMP, TSH #### [facility] [address] [address] [address] Mounika BrownCholesterol in HDL [Mass/Vol]89 mg/dLCritically rlrf16-30Zpm [facility]bleComment on above:Performed By: #### LIVER, LIPID, BMP, TSH #### [facility] [address] [address] [address] Mounika BrownCholesterol in LDL [Mass/Vol]138.2 mg/dLNoBrown Memorial HospitalComment on above:Performed By: #### LIVER, LIPID, BMP, TSH #### [facility] [address] [place] [address] Dr. Mounika Badillo.total/Cholesterol in HDL [Mass ratio]2.7 {ratio} NormalThe [facility] PrebleComment on above:Performed By: #### LIVER, LIPID, BMP, TSH #### [facility] [address] [place] [address] Dr. Mounika BrownHDMani NORMAL> or = 60 mg/dl - LOW CARDIOVASCULAR RISK <40 mg/dl - HIGH CARDIOVASCULAR RISKSelect Medical Specialty Hospital - YoungstownComment on above:Performed By: #### LIVER, LIPID, BMP, TSH #### [facility] [address] [place] [address] Dr. Mounika BrownLDL CALC NORMALSEE BELOWNoBrown Memorial HospitalComment on above:Result Comment: <100 mg/dl OPTIMAL 100 - 129 mg/dl NEAR OR ABOVE OPTIMAL 130 - 159 mg/dl BORDERLINE HIGH 160 - 189 mg/dl HIGH >190 mg/dl VERY HIGH Performed By: #### LIVER, LIPID, BMP, TSH #### [facility] [address] [place] [address] Dr. Mounika BrownTriglyceride [Mass/Vol]49 mg/dLNormal<=150[facility] Comment on above:Performed By: #### LIVER, LIPID, BMP, TSH #### [facility] [address] [place] [address] Dr. Mounika AppiahLDL CALC9.8 mg/dLNormalThe [facility] PrebleComment on above: Performed By: #### LIVER, LIPID, BMP, TSH #### [facility] [address] [address] [address] Mounika Mayen PROFILEon 85-65-6956Yuzgrfd [Mass/Vol]4.3 g/dLNormal3.4-5.0 The [facility]bleComment on above:Performed By: #### LIVER, LIPID, BMP, TSH #### [facility] [address] [address] [address] Mounika BrownAlbumin/Globulin [Mass ratio]1.2 {ratio}NormalThe [facility] on above:Performed By: #### LIVER, LIPID, BMP, TSH #### [facility] [address] [place] [address] Dr. Mounika Cruz [Catalytic activity/Vol]49 U/BRmwznh50-264Cig [facility]bleComment on above:Performed By: #### LIVER, LIPID, BMP, TSH #### [facility] [address] [place] [address] Dr. Mounika Varela [Catalytic activity/Vol]17 U/UNybvsz12-24Lxv [facility] on above:Performed By: #### LIVER, LIPID, BMP, TSH #### [facility] [address] [place] [address] Dr. Mounika Abrams [Catalytic activity/Vol]19 U/UPpcaxq12-94Luv [facility] on above:Performed By: #### LIVER, LIPID, BMP, TSH #### [facility] [address] [address] [address] Mounika Yoder, CONJUGATED0.2 mg/dLNormal0.0-0.2The [facility] Comment on above:Performed By: #### LIVER, LIPID, BMP, TSH #### [facility] [address] [place] [address] Dr. Mounika Palmirubin [Mass/Vol]1.0 mg/dLNormal0.2-1.0The [facility] Comment on above:Performed By: #### LIVER, LIPID, BMP, TSH #### [facility] [address] [address] [address] Mounika BrownGlobulin (S) [Mass/Vol]3.6 g/dLNormalThe [facility]bleComment on above:Performed By: #### LIVER, LIPID, BMP, TSH #### [facility] [address] [address] [address] Mounika BrownProtein [Mass/Vol]7.9 g/dLNormal6.4-8.2[facility] Comment on above:Performed By: #### LIVER, LIPID, BMP, TSH #### [facility] [address] [place] [address] Dr. Mounika BrownPROF CHEM 8 (BAS METB)on 88-58-6718Muuyr gap [Moles/Vol]14.2 mmol/LNormalThe [facility]bleComment on above:Performed By: #### LIVER, LIPID, BMP, TSH #### [facility] [address] [place] [address] Dr. Mounika BrownCalcium [Mass/Vol]9.3 mg/dLNormal8.5-10.1[facility] Comment on above:Performed By: #### LIVER, LIPID, BMP, TSH #### [facility] [address] [place] [address] Dr. Mounika BrownChloride [Moles/Vol]102 mmol/RGvxvzo69-020IghVeterans Health Administration Comment on above:Performed By: #### LIVER, LIPID, BMP, TSH #### [facility] [address] [place] [address] Dr. Mounika BrownCO2 [Moles/Vol]24.1 mmol/KZwcfeo39.0-32.0[facility] Comment on above:Performed By: #### LIVER, LIPID, BMP, TSH #### [facility] [address] [place] [address] Dr. Mounika BrownCreatinine [Mass/Vol]0.81 mg/dLNormal0.55-1.02The Wendel HospitalComment on above:Performed By: #### LIVER, LIPID, BMP, TSH #### [facility] [address] [address] [address] Mounika HuertasGFR-AF CITIZEN OF [place]>60Normal>=60The [facility]bleComment on above:Performed By: #### LIVER, LIPID, BMP, TSH #### [facility] [address] [address] [address] Mounika HuertasGFR-NON AF CITIZEN OF [place]>60Normal>=60The [facility]bleComment on above:Performed By: #### LIVER, LIPID, BMP, TSH #### [facility] [address] [address] [address] Mounika BrownGlucose [Mass/Vol]80 mg/lNQxtais03-231Too [facility] Comment on above:Performed By: #### LIVER, LIPID, BMP, TSH #### [facility] [address] [address] [address] Mounika BrownPotassium [Moles/Vol]3.3 mmol/LCritically low3.5-5.1The [facility]bleComment on above:Performed By: #### LIVER, LIPID, BMP, TSH #### [facility] [address] [place] [address] Dr. Mounika Norwooddium [Moles/Vol]137 mmol/YZjvmer798-294Xrh [facility] Comment on above:Performed By: #### LIVER, LIPID, BMP, TSH #### [facility] [address] [address] [address] Mounika BrownUrea nitrogen [Mass/Vol]17.0 mg/dLNormal7.0-18.0The [facility] PrebleComment on above:Performed By: #### LIVER, LIPID, BMP, TSH #### [facility] [address] [place] [address] Dr. Mounika Garnett nitrogen/Creatinine [Mass ratio]21.0 mg/mgNormalThe [facility]bleComment on above:Performed By: #### LIVER, LIPID, BMP, TSH #### [facility] [address] [place] [address] Dr. Mounika Morris 20-23-3469DVO1.290 uIU/mLNormal0.358-3.740[facility] Health AdministrationComment on above:Performed By: #### LIVER, LIPID, BMP, TSH #### [facility] [address] [place] [address] Dr. Mounika BrownVITAMIN D 25 OHon 12-30-6970ARX D 25-OH29.1 ng/mLNormalVeterans Health AdministrationComment on above:Performed By: #### VITAD #### [facility] [address] [place] [address] Dr. Mounika BrownVIT D RANGESSEE [facility] HospitalComment on above: Result Comment: <20 ng/mL Vit D deficient 20 - <30 ng/mL Vit D insufficient 30 - 100 ng/mL Vit D sufficient >100 ng/mL Potential ToxicityPerformed By: #### VITAD #### [facility] [address] [place] [address] Dr. Mounika BrownMG MAMM SCREEN 3D WYATT CADon 71-63-8280RZ MAMM SCREEN 3D WYATT CAD Patient: KASSANDRA CHARLES Exam Date: 05/07/2022 : 1980 Gender:F Ordering : DR TAMMY DAY . Admission #: [id number] Family : Order #: [id number] CLICK HERE TO VIEW EXAM RADIOLOGY REPORT PROCEDURE: MAMMOGRAM SCREENING 3D BILATERAL CAD COMPARISON: None. INDICATIONS: Screening mammography Calculator Name NCI Breast Cancer Risk Assessment Tool 5 Year Breast Cancer Risk 0.60% Lifetime Breast Cancer Risk 11.10% Personal Breast Cancer No Personal Ovarian Cancer No Treatments None Family Cancers Mother with retina cancer at age 45. LOCATION: The [facility] BREAST COMPOSITION: Extremely dense, which lowers the [...] by: Lenore Perdomo MD on 05/07/2022 at 10:27[facility] PANEL 2: 30 to 65on 05-01-2022..NormalTr[facility] on above:Result Comment: Performed at: WBPerformed By: #### [id number] #### [facility] [address] [place] [address] Dr. Mounika BrownAge Gdln ACOG Gqydaio54-99KrowlpAqqBrown Memorial HospitalCommckenzie memorial hospital on above:Performed By: #### [id number] #### [facility] [address] [place] [address] Dr. Mounika BrownDIAGNOSIS:CommentOhioHealth Pickerington Methodist Hospital on above: Result Comment: NEGATIVE FOR INTRAEPITHELIAL LESION OR MALIGNANCY. Performed at: WBPerformed By: #### [id number] #### [facility] [address] [place] [address] Dr. Mounika BrownHPV AptimaNegativeNormalNegativeTrinity Health System [facility] on above:Result Comment: This nucleic acid amplification test detects fourteen high-risk HPV types (16,18,31,33,35,39,45,51,52,56,58,59,66,68) without differentiation. Performed at: =GPerformed By: #### [id number] #### [facility] [address] [place] [address] Dr. Mounika BrownMethodology:CommentOhioHealth Pickerington Methodist Hospital on above: Result Comment: This liquid based ThinPrep(R) pap test was screened with the use of an image guided system. Performed at: WBPerformed By: #### [id number] #### [facility] [address] [place] [address] Dr. Mounika BrownNote:CommentOhioHealth Pickerington Methodist Hospital on above:Result Comment: The Pap smear is a screening test designed to aid in the detection of premalignant and malignant conditions of the uterine cervix. It is not a diagnostic procedure and should not be used as the sole means of detecting cervical cancer. Both false-positive and false-negative reports do occur. . Performed at: WBPerformed By: #### [id number] #### [facility] [address] [address] [address] Mounika BrownPerformed by:CommentOhioHealth Pickerington Methodist Hospital on above: Result Comment: Maria R Saravia, Director Global Market Research (ASCP) Performed at: WBPerformed By: #### [id number] #### [facility] [address] [address] [address] Mounika BrownSpecimen adequacy:CommentOhioHealth Pickerington Methodist Hospital on above:Result Comment: Satisfactory for evaluation. Endocervical and/or squamous metaplastic cells (endocervical component) are present. Performed at: WBPerformed By: #### [id number] #### [facility] [address] [place] [address] Dr. Mounika Brown Vital Signs Date TimeVital SignValuePerforming VgcnafxlqJivjvqjy56-75-0122 14:23-0400Body wpfiyj766.2 cmDavid Pocos DO Work Phone: [phone] [place], [place] [address]Izasmvfelc70-91-2999 14:23-0400Body mass index (BMI) [Ratio]22.55 kg/u2Ypsit Pocos DO Work Phone: [phone] [place], [place] [address]2509-03-2025 14:23-0400Body jvgesx40.32 kgDavid Pocos DO Work Phone: 1(336)[address]01-23-2025 11:43-0500Diastolic blood sdsnumqy96 mm[Hg]Ginny Ly DO Work Phone: 1([phone] [place], [place] [address]01-23-2025 11:43-0500 Heart rate58 /minCatherine Ly DO Work Phone: [phone] [place], [place] 5443601-23-2025 11:43-0500 Respiratory rate16 /minCatherine Ly DO Work Phone: [phone] [place], [place] 544[address]01-23-2025 11:43-0500 SaO2% (BldA) [Mass fraction]99 %Ginny Ly DO Work Phone: [phone] [place], [place] [address]01-23-2025 11:43-0500 Systolic blood kjqmnwae530 mm[Hg]Ginny Ly DO Work Phone: [facility]01-23-2025 10:31-0500 Body yshfkw993.18 cmCatherine Ly DO Work Phone: [facility]01-23-2025 10:31-0500 Body hzzvka92.5 kgCatherine Ly DO Work Phone: [facility]09-30-2024 08:35-0400 Body csffvo875.2 cmCorey Barb DO Work Phone: [facility] HospitalTxnnmwxrvq90-78-9971 08:35-0400Body mass index (BMI) [Ratio]21.93 kg/r8Lfmdu Barb DO Work Phone: [facility]OMer[facility] JoplinUurniocvdj16-41-9872 08:35-0400Body bowikq45.5 kg Tammy Barb DO Work Phone: [facility]OMer[facility] Hospital JoplinDvazxlhora57-13-0661 08:35-0400Diastolic blood svgeahko56 mm[Hg]Tammy Barb DO Work Phone: noMercy Hospital JoplinQjhgigjbbd67-54-3852 08:35-0400Systolic blood ysxcotud156 mm[Hg]Tammy Barb DO Work Phone: [facility] Encounters Encounter DateEncounter TypeCare ProviderFacilityStart: 06-08-2025 End: 44-34-7695Rbsszz flowsheetCorey Barb DO Work Phone: noMS Wendel OBGYNStart: 06-08-2025 End: 30-17-9505Lqikqu flowsheetCorey Barb DO Work Phone: noMS Wendel OBGYNStart: 04-28-2025 End: 90-34-9848Dunisg flowsheetMarshall Brink PTANOMS [facility] Start: 04-28-2025 End: 85-29-8438Lbteks flowsheetMarshall Brink PTANOMS [facility] Start: 04-28-2025 End: 40-20-3713hhvlvqtldeWratbxvx Brink PTACommunity Memorial Hospital Physical TherapyComment on above:Right ankle pain, unspecified chronicity (Primary Dx); Retrocalcaneal bursitis, right; Mild ankle sprain, right, sequelaStart: 04-22-2025 End: 56-39-0843Drmwzp flowsheetSammantha Fernandez [facility] Start: 04-22-2025 End: 00-91-6906Quzpme flowsheetSammantha Fernandez PT [facility] Start: 04-22-2025 End: 82-72-2100dtkdfaoxnmTvqfxyfvk Fernandez [facility] Comment on above:Right ankle pain, unspecified chronicity (Primary Dx); Retrocalcaneal bursitis, right; Mild ankle sprain, right, sequelaStart: 04-07-2025 End: 05-70-9006caqoffiizjNGGWQ A POCOSNot AvailableStart: 04-07-2025 End: 80-19-6240Gccumil encounter procedureDavid A Pocos DO Work Phone: [facility]oms [facility] OrthopaedicsComment on above:Right ankle pain, unspecified chronicity (Primary Dx); Retrocalcaneal bursitis, right; Mild ankle sprain, right, sequelaStart: 04-07-2025 End: 20-15-9764tbpagdipedNNGHE A POCOSNot AvailableStart: 98-96-3754Plr-patient / Non-visitCatherine Ly DO Work Phone: [facility] Work Phone: Start: 08-27-2024 End: 11-71-3277Dgqucghcv to same day surgery centerCatherine Ly DO Work Phone: [facility] Work Phone: Start: 08-27-2024 End: 30-73-8465xibyyyavagRjpgrwyzv L Ly DO Work Phone: [facility] Work Phone: Start: 05-13-2024 End: 91-21-5614Cnkgtkius Result EncounterCorey Barb DO Work Phone: noms External Department UnsolicitedStart: 05-13-2024 End: 49-67-5498Ggtpfylnu Result EncounterCorey Barb DO Work Phone: noms External Department UnsolicitedStart: 05-04-2024 End: 16-81-7179Oedldd flowsheetCorey Barb DO Work Phone: noms BCP OBStart: 05-04-2024 End: 81-18-5535Vbndrtber Result EncounterCorey Barb DO Work Phone: noms External Department UnsolicitedStart: 05-04-2024 End: 57-03-7995Yjuiytnlf Result EncounterCorey Barb DO Work Phone: noms External Department UnsolicitedStart: 05-04-2024 End: 80-60-4480Chgyirf encounter procedureCorey Barb DO Work Phone: noms HealthcareStart: 05-04-2024 End: 77-18-6382Mngzsass preventive med est patient 40-64yrsCorey Barb DO Work Phone: noms BCP OBComment on above:Breast cancer screening by mammogram; Well woman exam with routine gynecological examStart: 05-04-2024 End: 40-59-0981ukanmejwdpSICFW FAZIONot AvailableStart: 20-36-3559Kzqadicfa for general adult medical examination without abnormal findingsDR LOUIE Swanson [facility] Centertart: 05-24-2022 End: 11-79-4297twktcnngnqKO LOUIE Swan NADERERFacility:D2Jxzst: 05-24-2022 End: 22-85-5336Ttivzfhpl for general adult medical examination without abnormal findingsDR LOUIE Swan NADERERFacility:C6Qattp: 05-07-2022 End: 88-11-4983fewvxkfykaMK LOUIE Swan NADERERFacility:V1Gqtpk: 04-24-2022 End: 74-80-6165wxyaaajsdiEH TAMMY FAZIOFacility:H1 Procedures DateProcedureProcedure DetailPerforming ClinicianStart: 09-82-2847Wlasg ankle complete minimum 3 viewsDavid A Pocos DO Work Phone: Start: 86-77-8178VibodbwhussZxsjcwklz Ly DO Work Phone: Start: 66-70-9292XM TOMOSYNTHESIS SCREENING BICorey Barb DO Work Phone: Start: 20-39-8704EagibepuqcpVqqsu Pocos DO Work Phone: Start: 70-87-6839LVA,APTIMA HPV,AGE GDLNCorey Barb DO Work Phone: Start: 43-80-3497Rixkjupovvu observation [Identifier] in Cervix by Cyto stainDavid Pocos DO Work Phone: Start: 33-72-1262LxfomuakwpjSsscg Barb DO Work Phone: Start: 56-69-4484Arsnupkrhps observation [Identifier] in Cervix by Cyto stainCorey Barb DO Work Phone: Plan of Treatment DateCare ActivityDetailAuthorStart: 21-28-4956Twfemisrq for malignant neoplasm of cervixNOMS HealthcareStart: 00-22-0804Aoaehfnwu for malignant neoplasm of cervixPap SmearNOMS HealthcareStart: 98-51-4305Hnlanxwmb for malignant neoplasm of cervixPap SmearNOMS HealthcareStart: 06-08-2025 End: 93-54-7439Dqqfskn encounter procedureNOMS Jackie OBGYNComment on above: ArrivedStart: 05-24-2025 End: 32-78-9249qvfebcvvem79/20/2025 8:30 AM EDT Treatment [facility] [address] [facility] [address] [place], [id number] Ana Fernandez PTNOMS [place] Physical TherapyStart: 05-19-2025 End: 58-72-1792qgibspsfds91/15/2025 7:30 AM EDT Treatment [facility] [address] [place] [address] [place], [id number] Kassandra Pedro PTANO [facility] TherapyStart: 08-42-4864Mqilrrapz for malignant neoplasm of breastScheurer HospitalStart: 05-12-2025 End: 88-24-0061xwsrlwtejy49/08/2025 7:30 AM EDT Treatment [facility] [address] [facility] [address] [place], [id number] Kassandra Pedro PTANO [facility] TherapyStart: 05-07-2025 End: 43-34-5877Eiueyoj encounter ekquvxuts18/03/2025 8:15 AM EDT Office Visit [facility] [address] [place] [address] Lenore Dillon DO [address] [place] [address] NOMS [facility] OrthopaedicsStart: 05-06-2025 End: 61-93-9294Vcuacig encounter kosptmhaw82/02/2025 8:30 AM EDT Office Visit [facility] [address] [facility] [place] [address] Tammy Day DO [address] [place] [address] NOMS BCP OBStart: 05-05-2025 End: 35-60-2145jzcyqufvau01/01/2025 7:30 AM EDT Treatment [facility] [address] [facility] [address] [place], [id number] Kassandra Pedro PTANO [facility] TherapyStart: 04-28-2025 End: 94-73-2878zrcvwunjrf23/24/2025 7:30 AM EDT Treatment [facility] [address] [place] [address] [place], [id number] Nico Salazar PTANOMS [facility] Physical TherapyStart: 04-22-2025 End: 23-26-2207wnkmiueniaOROE [facility] TherapyComment on above:Right ankle pain, unspecified chronicity; Retrocalcaneal bursitis, right; Mild ankle sprain, right, sequelaStart: 48-62-4961Jxhornlhu vaccinationInfluenza Vaccine (#1)[facility] HealthcareStart: 34-54-3938BhrdwbkbkUniversity [facility]als [facility] Start: 80-71-9875Vdiplpebh for malignant neoplasm of breastMammogramNOMI HealthcareStart: 05-04-2024 End: 70-00-4533NL Breast - bilateral ScreeningBilateral screening mammogram Imaging Routine Breast cancer screening by mammogram Expected: 05/04/2024 (Approximate), Expires: 07/04/2025[facility] Work Phone: comment on above:Expected: 05/04/2024 (Approximate), Expires: 07/04/2025Start: 05-04-2024 End: 19-62-4006Nkjvjin encounter fovderwwb15/30/2024 8:30 AM EDT Office [facility] [address] [place] [phone] Tammy Day, DO [address] [place] [address] ArrivedVA [facility]ATER LOS [facility] OBComment on above:ArrivedStart: 52-30-9333Ryyyxobyf vaccinationInfluenza Vaccine (#1)[facility] HealthcarePatient EducationKnow your [facility] Work Phone: THIN PREP TIS PAP AND HR HPV DNATHIN PREP TIS PAP AND HR HPV DNA Pathology and Cytology Routine Well woman exam with routine gynecol ogical exam Ordered: 05/04/2024NOMI HealthcareComment on above:Ordered: 05/04/2024XR Ankle - right 3 ViewsXR ankle 3+ views right Imaging Routine Right ankle pain, unspecified chronicity 04/07/2025 11:01 AM EDTCAC[facility] Healthcare Work Phone: Payers DatePayer CategoryPayerPolicy [id number] Health [id number] [id number] 2.16.840.1.207689.3.57[id number] 2.16.840.1.728726.3.57[id number] 2.16.840.1.517891.3.57[id number] 2.16.840.1.648351.3.57[id number] 2.16.840.1.305672.3.57[id number] 2.16.840.1.349265.3.57[id number] 2.840.1.440940.3.57[id number] 2.16840.1.165842.3.579.2.531 Social History DateTypeDetailFacilityStart: 05-04-2024 End: 98-64-0423Icgoucm smoking status NHISNever smoked tobaccoNOMS Healthcare Start: 27-93-4492Tftplat use and exposureSmokeless tobacco non-userNOMS HealthcareStart: 05-04-2024 End: 66-95-2353Gpqexifym beverage intakeCurrent drinker of alcohol (finding)NOMS HealthcareStart: 05-04-2024 End: 58-62-6029Fokidpf of Social functionNOMS HealthcareStart: 05-04-2024 End: 10-92-0104Ffpfcci use panelNOMI HealthcareStart: 39-08-9273Eodrmea Comment Only on special occasionsNOMS HealthcareStart: 88-30-4297Hbp assigned at Not on fileNOMS HealthcareStart: 41-13-9202Xpcxseq Commentmonthly or lessNOMS HealthcareStart: 51-93-8329HsdBrtnmj (finding)[facility] Start: 48-93-1159Sgg Assigned At BirthSelect Medical [facility] Start: 34-29-7055GikTizbexLUZU Healthcare Goals DatePatient GoalDesired Activity/State Clinical Notes 05-04-2024 to 04-07-2025 Note Date & TxdxZwbaXturjrsm28-39-2698 History of Present illness Narrative* Sweta Glez - 04/07/2025 2:15 PM EDT Images from the original note were not included. Kassandra Charles is a 45 y.o. female presents with chief complaint of right ankle pain and swelling. HPI: Kassandra is a 45-year-old white female who presents complaining of ankle pain and swelling. This hasbeen going on since July of 2023. She initially gave it a little bit of time. 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 She ended up seeing Ericka Mayberry where she was given an ASO. She has had no further care or treatment. She denies any injury to the area. This is still effecting her, still frustrating to her. Her pain is all posterior. SUBJECTIVE: MEDICATIONS: Current Outpatient Medications Medication Instructions meloxicam (MOBIC) 7.5 mg, Oral, Daily, With food. ALLERGIES: Allergies Allergen Reactions Cefaclor Unknown SURGICAL HISTORY: Past Surgical History: Procedure Laterality Date OTHER SURGICAL HISTORY Curretage left foot FAMILY HISTORY: Family History Problem Relation Name Age of Onset Diabetes Mother Cathmichael Felisha Other (Anal Cancer) Mother Eduardo Romerohbun SOCIAL HISTORY: Social History Tobacco Use Smoking status: Never Smokeless tobacco: Never Substance Use Topics Alcohol use: Yes Comment: Only on special occasions Drug use: Not Currently Depression: Not on file REVIEW OF SYMPTOMS: The review of systems, history and current medications list are all reviewed today. OBJECTIVE: Visit Vitals Ht 5' 7 Wt 144 lb BMI 22.55 kg/m OB Status Having periods Smoking Status Never BSA 1.76 m Physical Exam Her orthopedic exam reveals a pleasant, fit 45-year-old white female. She answers allquestions appropriately. She is in no acute distress. Examination of the ankle shows no tenderness over the supporting structures and ligaments, either medial or lateral. She has a negative anterior drawer, negative talar tilt. She does have tenderness over the retrocalcaneal space. This is more tothe medial aspect than the lateral aspect. Her range of motion of the ankle is without difficulty. No further finding in the Achilles bilaterally. Examination of the x-rays AP, lateral and oblique of the right ankle here today total of three views with permanent images are saved to the record coupled with previous films from [facility] in August of 2023 does show some spurring off the tip of the medial and lateral malleolus. Ankle mortise is well maintained. No evidence of fracture or instability pattern. ASSESSMENT AND PLAN: Assessment/Plan Right ankle pain with retrocalcaneal bursitis. History of prior mild ankle sprain, lateral in nature. The findings are discussed. We would revert back to routine principles for the care of this and we did discuss anti-inflammation coupled with therapy. We did put her on Meloxicam 7.5 mg daily. We discussed the use of Voltaren gel. We will refer to [facility] Physical therapy [facility] for treatment and evaluation. We did discuss injection. We will hold on that for now. We will check her back in one month for recheck and review. All of her questions are otherwise answered at length. She is discharged in stable condition. She will call with any problems, questions or concerns whatsoever. Cosigned by Lenore Dillon DO at 04/09/2025 7:32 AM EDT documented in this encounterBates County Memorial HospitalIouiyxbmvt96-22-1602 History [place] [address] Gastroenterology H&P Signed Patient: Kassandra Charles MR#: [id number] : 1980 Acct:[id number] Age/Sex: 44 / F Adm Date: 5 Loc: Room: Type: [facility] Attending Dr: Ginny Mahoney DO Copies to: DO Louie Joseph MD~ Date of Service: 08/27/2024 HISTORY & PHYSICAL: Patient's history with special attention to the cardiovascular, pulmonary systems and the current problem was reviewed with the patient immediately prior to the procedure. Present medications and doses reviewed in the EMR. Allergies and pertinent laboratory tests were also re viewedat this time in the EMR. The physical examination, as below, was then performed. Indication, assessment and HPI: 44-year-old female who presents for colonoscopy for family history of colon cancer in her mother diagnosed in her 40s to 50s. Patient's last colonoscopy was about 7 years ago. Family history of GI malignancy? Colon cancer in her mother diagnosed in her 40s to 50s PHYSICAL EXAMINATION General appearance: cooperative, NAD Skin: No jaundice, no rash or lesions Head: NCAT Eyes: Anicteric Neck: Supple Lungs: Normal respiratory effort, no use of accessory muscles Abdomen: Soft, nondistended Neuro: No focal deficits, Ox3. REVIEW OF SYSTEMS Constitutional: Denies malaise, fevers Cardiovascular: Denies chest pain, palpitations Respiratory: Denies shortness of breath, wheezing Gastrointestinal: As per HPI Genitourinary: Denies dysuria, polyuria Musculoskeletal: Denies joint swelling, joint stiffness Neurological: Denies confusion, numbness, tingling Endocrine: Denies fatigue Written informed consent obtained from the patient. Risks (including but not limited to perforation, infection, bloating, bleeding, need for emergent surgeryand loss of life), benefits and alternatives explained and questions answered. The patient verbalized understanding. Based on history patient is an appropriate candidate for the procedure. Ginny Mahoney DO Present medication and doses reviewed in the EMR Documented By: Ginny Mahoney DO 08/27/24 104 Signed By: 08/27/24 104 [facility]01-23-2025 [place] [address] Colonoscopy Procedure Report Signed Patient: Kassandra Charles MR#: [id number] : 1980 Acct:[id number] Age/Sex: 44 / F Adm Date: 5 Loc: Room: Type: [facility] Attending Dr: Ginny Mahoney DO Copies to: DO Louie Joseph MD~ Colonoscopy Date/Provider 08/27/2024 Ginny Mahoney DO Narrative Procedure: Colonoscopy Indication: Family history of colon cancer in her mother diagnosed in her 40s to50s. Last colonoscopy 7 years ago Pre-operative diagnosis: Family history of colon cancer in her mother diagnosed in her 40s to 50s. Post-operative diagnosis: Normal colon and TI Sedation: propofol per anesthesia dept O2 oximetry, hemodynamic monitoring was performed pre, during, and post procedure. Patient was identified, H&P completed, patient was given full explanation of the procedure as well as associatedrisks and written consent wasobtained prior to procedure. Patient expressed complete understanding of the procedure as well as alternatives to the procedure and to anesthesia and agreed to proceed with the procedure as indicated. Patient was immediately reassessed prior to IV sedation. Under IV sedation, patient was placed in the left lateral decubitus position. Digital rectal exam was performed and normal. Colonoscope was inserted and passed proximally to the cecum, which was identified by the ileocecal valve, appendiceal orifice and cecal floor. The terminal ileum was intubatedand examined. Colonoscope was slowly withdrawn with the findings as below. Tobyhanna bowel prep score was good. Findings: Terminal ileum: normal Cecum: Normal. Ascending colon: Normal. Hepatic flexure: Normal. Transverse colon: Normal. Splenic flexure: Normal. Descending colon: Normal. Sigmoid colon: Normal. Rectum: Normal. Retroflexed views: Normal Biopsy taken: None Complications: None EBL: None Recommendations: -Repeat colonoscopy in 5 yrs -Fiber rich diet -Follow up in the office as needed -Follow up with PCP Following a period of recovery, patient was seen and given full explanation of the procedure. Patient tolerated the procedure well and will be discharged in satisfactory, stable condition. Ginny Mahoney DO Documented By: Ginny Mahoney DO 08/27/24 1041 Signed By: 08/27/24 1109 [facility]09-30-2024 History of Present illness Narrative * Alexus Tavares LPN - 05/04/2024 8:30 AM EDT Reason for Appointment: Patient ID: Kassandra Charles is a 44 y.o. female who presents for Well Women Visit Patient presents today for Annual Exam. MEDICATIONS No current outpatient medications ALLERGIES Allergies Allergen Reactions Cefaclor Unknown PROBLEMS Active Ambulatory Problems Diagnosis Date Noted [...] SYSTEMS Review of Systems: Review of Systems All other systems reviewed and are negative. OBJECTIVE Objective: Physical Exam Constitutional: Appearance: Normal [...] nursing note reviewed. 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 Vitals: Estimated body mass index is 21.93 kg/m as calculated from the following: Height as of this encounter: 5' 7 . Weight as of this encounter: 140 lb. BP: 124/82 No LMP recorded. ASSESSMENT & PLAN ICD-10-CM 1. Breast cancer screening by mammogram Z12.31 Bilateral screening mammogram Bilateral screening mammogram 2. Well woman exam with routine gynecological exam Z01.419 THIN PREP TIS PAP AND HR HPV DNA Annual: Patient presents today for an annual exam. Patient states she is doing well and has no complaints. Pap was obtained without difficulty and patient given mammogram order to have scheduled/obtained. 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 Patient has labs drawn tomorrow for work and will have results sent to office for review. Orders Placed This Encounter Procedures Bilateral screening mammogram Follow Up: Patient is to return in one year for annual unless needed otherwise. Documented by Alexus Tavares LPN on behalf of: Tammy Day DO documented in this encounterNOMI HealthcareEvaluation note* Diagnosis Breast cancer screening by mammogram Well woman exam with routine gynecological exam Routine gynecological examination documented in this encounter NOMS HealthcareEvaluation noteNo assessment information availableSelect Medical Specialty [facility] Work Phone: Evaluation note* Diagnosis Right ankle pain, unspecified chronicity- Primary Retrocalcaneal bursitis, right Mild ankle sprain, right, sequela documented in this encounter [facility] HealthcareEvaluation note* Diagnosis Right ankle pain, unspecified chronicity- Primary Retrocalcaneal bursitis, right Mild ankle sprain, right, sequela documented in this encounter [facility] HealthcareEvaluation note* Diagnosis Right ankle pain, unspecified chronicity- Primary Retrocalcaneal bursitis, right Mild ankle sprain, right, sequela documented in this encounter [facility]OMS HealthcareHistory and physical note Author iGnny Mahoney [facility] Medical CenterNote Date/TimeJanuary 2024 11:52am [place] [address] Gastroenterology H&P Signed Patient: Kassandra Charles MR#: [id number] : 1980 Acct:[id number] Age/Sex: 44 / F Adm Date: Loc: Room: Type: [facility] Attending Dr: Ginny Mahoney DO Copies to: DO Louie Joseph MD~ Date of Service: 08/27/2024 HISTORY & PHYSICAL: Patient's history with special attention to the cardiovascular, pulmonary systems and the current problem was reviewed with the patient immediately prior to the procedure. Present medications and doses reviewed in the EMR. Allergies and pertinent laboratory tests were also re viewedat this time in the EMR. The physical examination, as below, was then performed. Indication, assessment and HPI: 44-year-old female who presents for colonoscopy for family history of colon cancer in her mother diagnosed in her 40s to 50s. Patient's last colonoscopy was about 7 years ago. Family history of GI malignancy? Colon cancer in her mother diagnosed in her 40s to 50s PHYSICAL EXAMINATION General appearance: cooperative, NAD Skin: No jaundice, no rash or lesions Head: NCAT Eyes: Anicteric Neck: Supple Lungs: Normal respiratory effort, no use of accessory muscles Abdomen: Soft, nondistended Neuro: No focal deficits, Ox3. REVIEW OF SYSTEMS Constitutional: Denies malaise, fevers Cardiovascular: Denies chest pain, palpitations Respiratory: Denies shortness of breath, wheezing Gastrointestinal: As per HPI Genitourinary: Denies dysuria, polyuria Musculoskeletal: Denies joint swelling, joint stiffness Neurological: Denies confusion, numbness, tingling Endocrine: Denies fatigue Written informed consent obtained from the patient. Risks (including but not limited to perforation, infection, bloating, bleeding, need for emergent surgeryand loss of life), benefits and alternatives explained and questions answered. The patient verbalized understanding. Based on history patient is an appropriate candidate for the procedure. Ginny Mahoney DO Present medication and doses reviewed in the EMR Documented By: Ginny Mahoney DO 08/27/24 1041 Signed By: <Electronically signed by Ginny Mahoney DO> 08/27/24 1041 [facility] Work Phone: Reason for visit Narrative* Consultation (Routine) - AuthorizedSpecialtyDiagnoses / ProceduresReferred By ContactReferred To ContactPhysical Therapy Diagnoses Right ankle pain, unspecified chronicity Retrocalcaneal bursitis, right Mild ankle sprain, right, sequela Procedures ID OFFICE/OUTPATIENT NEW [facility] 60 MINUTES Lenore Dillon DO [address] [place] [address] Phone: tel: fax: Ana Fernandez, PT Referral IDStatusReasonStart DateExpiration DateVisits RequestedVisits [id number] Consult and Treat / [facility] HealthcareReason for visit Narrative* Consultation (Routine) - Authorized SpecialtyDiagnoses / ProceduresReferred By ContactReferred To ContactPhysical Therapy Diagnoses Right ankle pain, unspecified chronicity Retrocalcaneal bursitis, right Mild ankle sprain, right, sequela Procedures ID OFFICE/OUTPATIENT NEW HIGH [facility] 60 MINUTES Lenore Dillon, DO [address] [place] [address] Phone: tel: fax: Ana Fernandez PT Referral IDStatusRafaelStkarma DateExpiration DateVisits RequestedVisits [id number] Consult and Treat /[id number] [facility] Healthcare Summary Purpose Family History Relationship Condition Age at Onset Recorded Date/T aditi mother Malignant neoplasm of colon Unknown Diabetes mellitusUnknown Advance Directives Advance Directive Response Recorded Date/ Time Advance Directives No August 06, 2024 2:13pm Chief Complaint and Reason for Visit Chief Complaint Admit Date Fm Hx of colon cancer August 27, 2024 10:20am Fm Hx of colon cancer August 27, 2024 10:41am Additional Source Comments INFORMATION SOURCE (unrecogn ized section and content) DATE CREATED AUTHOR 05/31/2022 [facility] DATE CREATED AUTHOR AUTHOR'S ORGANIZ ATION 09/08/2024 [facility] DATE CREATED AUTHOR AUTHOR'S ORGANIZ ATION 04/29/2025 [facility] EPIC Care Teams (unrecognized sec tion and content) Team MemberRelationshipSpecialtyStart DateEnd Date Louie Yates MD [address] [place] [address] PCP - GeneralFamily Medicine09/05/23Team MemberRelationshipSpecialtyStart DateEnd Date Louie Yates MD [address] [place] [address] [facility] Team Status: Active Member Role Status Dates Louie Yates MD Primary Care Provider Active Team Status: Inactive Member Role Status Dates Ginny Mahoney , Attending Provider, Referring Provider, Other Provider Active Start: August 27, 2024 End: August 27, 2024Mehnaz Hernandez Care ProviderActiveStart: August 27, 2024 End: August 27, 2024 Team Status: Active Member Role Status Dates Ginny Mahoney , Attending Provider, Referring Provider, Other Provider Active Start: August 27, 2024 Mehnaz Hernandez Care ProviderActiveStart: August 27, 2024 Team MemberRelationshipSpecialtyStart DateEnd Date Louie Yates MD PCP - [facility] Medicine09/05/23Team MemberRelationshipSpecialtyStart DateEnd Date Louie Yates MD PCP - [facility] Medicine09/05/23Team MemberRelationshipSpecialtyStart DateEnd Date Louie Yates MD PCP - [facility] Medicine09/05/23Team MemberRelationshipSpecialtyStart DateEnd Date [facility] - [facility]23Team MemberRelationshipSpecialtyStart DateEnd Date Louie Yates MD PCP - [facility] Medicine09/05/23Team MemberRelationshipSpecialtyStart DateEnd Date Louie Yates MD PCP - GeneralFamily Medicine09/05/23 Reason for Visit (unrecogniz ed section and content) ReasonCommentsWell Women VisitReasonCommentsPain FOR RECORDS PERTAINING TO PATIENTS WHO ARE [...] BE BASED ON THE PRIMARY CLINICAL RECORDS. [facility]. provides no warranty or guarantee of the accuracy or completeness of information in this document.
[2025-06-10 09:09] LABS: Age Gdln ACOG Testing Note (.); IGP, Aptima HPV, rfx 16/18,45 Note (.)
== END 2025-06-08 12:03 | disposition home or self-care (01) ==
LOC: LAB 12:02
PROVIDERS: Visit Provider Obstetrics & Gynecology
DX: Z01.419 Encounter for gynecological examination (general) (routine) without abnormal findings (principal)
CPT/HCPCS: 87624; 88175

== ENCOUNTER 2025-06-11 07:34 | Outpatient (OUT) | payer OTHER, SELFPAY ==
--- OUTSIDE RECORDS SUMMARY | 2025-06-08 08:30 | XMS_ITS | Encounter Summary ---
Author Organization [facility] Address [address] [facility] [place] [address] Care Team Providers Care Public Relations Analyst Name Role Phone Louie Yates MD Primary Care Provider [phone] Reason for Visit * ReasonCommentsGynecologic Exam Encounter Details DateTypeDepartmentCare Team (Latest Contact Info)Igampreoull02/04/2025 8:30 AM ESTOffice Visit [facility] [address] [place] [phone] Brice Day DO [address] [place] [address] Well woman exam with routine gynecological exam; Encounter for screening mammogram for malignant neoplasm of breast Social History Tobacco UseTypesPacks/DayYears UsedDateSmoking Tobacco: NeverSmokeless Tobacco: NeverAlcohol UseStandard Drinks/WeekCommentsYes0 (1 standard drink = 0.6 oz pure alcohol)Only on special occasionsCommentsNoSex and Gender Information ValueDate RecordedSex Assigned at BirthNot on fileLegal XgkPdvrbp32/15/2023 6:55 PM EDTGender IdentityNot on fileSexual OrientationNot on filedocumented as of this encounter Last Filed Vital Signs Vital SignReadingTime TakenCommentsBlood Pressure--Pulse--Temperature-- Respiratory Rate--Oxygen Saturation--Inhaled Oxygen Concentration--Yzicuf95.1 kg (148 lb)06/08/2025 8:37 AM GVHNfojvk376.2 cm (5' 7 )06/08/2025 8:37 AM ESTBody Mass Index23.18108/08/2024 8:37 AM ESTdocumented in this encounter Progress Notes * Twyla Rogers, PHOTO TECHNOLOGIST - 06/08/2025 8:30 AM EST Reason for Appointment: Patient ID: Margoth Charles is a 45 y.o. female who presents for Gynecologic Exam Patient presents today for Annual Exam. MEDICATIONS No current outpatient medications ALLERGIES Allergies Allergen Reactions Cefaclor Unknown Other Reaction(s): Unknown Reaction PROBLEMS Active Ambulatory Problems Diagnosis Date Noted No Active Ambulatory Problems Resolved Ambulatory Problems Diagnosis Date Noted No Resolved Ambulatory Problems Past Medical History: Diagnosis Date Breast cancer screening by mammogram 05/07/2022 HISTORY PAST MEDICAL HISTORY SOCIAL HISTORY Past Medical History: Diagnosis Date Breast cancer screening by mammogram 05/07/2022 neg Social History Tobacco Use Smoking status: Never Smokeless tobacco: Never Substance Use Topics Alcohol use: Yes Comment: Only on special occasions Drug use: Not Currently FAMILY HISTORY Family History Problem Relation Name Age of Onset Diabetes Mother Eduardo Baeza Other (Anal Cancer) Mother Eduardo Baeza SURGICAL HISTORY Past Surgical History: Procedure Laterality Date OTHER SURGICAL HISTORY Curretage left foot REVIEW OF SYSTEMS Review of Systems: Review of Systems Constitutional: Negative. HENT: Negative. Eyes: Negative. Respiratory: Negative. Cardiovascular: Negative. Gastrointestinal: Negative. Genitourinary: Negative. Musculoskeletal: Negative. Skin: Negative. Neurological: Negative. All other systems reviewed and are negative. Hematological: Negative. Endocrine: Negative. Allergic/Immunologic: Negative. OBJECTIVE Objective: Physical Exam Constitutional: Appearance: Normal appearance. She is well-developed. Genitourinary: Vulva normal. Breasts: Breasts are soft. Right: Normal. Left: Normal. Cardiovascular: Rate and Rhythm: Normal rate and regular rhythm. Pulmonary: Effort: Pulmonary effort is normal. Breath sounds: Normal breath sounds. Abdominal: General: Bowel sounds are normal. There is no distension. Palpations: Abdomen is soft. Tenderness: There is no abdominal tenderness. There is no guarding or rebound. Musculoskeletal: General: No swelling. Normal range of motion. Right lower leg: No edema. Left lower leg: No edema. Neurological: Mental Status: She is alert and oriented to person, place, and time. Skin: General: Skin is warm and dry. Psychiatric: Mood and Affect: Mood normal. Behavior: Behavior normal. Vitals and nursing note reviewed. Exam conducted with a pheresis nurse present. Vitals: Estimated body mass index is 23.18 kg/m?? as calculated from the following: Height as of this encounter: 5' 7 . Weight as of this encounter: 148 lb. BP: Patient's last menstrual period was 06/02/2025 (approximate). ASSESSMENT & PLAN ICD-10-CM 1. Well woman exam with routine gynecological exam Z01.419 THIN PREP TIS PAP AND HR HPV DNA 2. Encounter for screening mammogram for malignant neoplasm of breast Z12.31 Bilateral screening mammogram Bilateral screening mammogram Orders Placed This Encounter Procedures Bilateral screening mammogram Annual Wellness Exam: Patient presents today for routine annual exam. Patient states she has no current complaints. Patients vitals were reviewed and within normal limits. Growth and development is noted to be appropriate for age. Menstrual history is noted to be regular with no concerns reported. No mental health concerns was expressed. Pap Smear: Speculum was inserted into the vagina and pap was obtained without difficulty. HPV testing was performed per age guideline. Patient was advised that pap results could take anywhere from 7 to 10 days to receive and our office will reach out to the patient with those once we have them. Patient can also view results via Pryvt. I reinforced importance of condom use for STI prevention. Patient declined cultures to be performed with today's visit. Breast Exam: Upon examination, clinical breast exam was noted to be normal and screening mammogram was ordered and given to patient to have obtained. Patient was counseled on breast self-awareness, including the importance of knowing what is normal for her own breasts and promptly reporting any changes such as new lumps, skin dimpling, nipple discharge, or pain. Screening mammogram was recommended annually. Discussed signs and symptoms of breast cancer and when to seek medical attention. Answered all patient questions. Contraceptive Counseling (if applicable): Patient is currently using condoms as a form of contraceptive. Patient does not desire control at this time. Follow Up: Patient is to return to our office in one year for annual exam unless needed otherwise. Documented by Twyla Rogers LPN on behalf of: Brice Day DO documented in this encounter Plan of Treatment DateTypeDepartmentCare Team (Latest Contact Info)Ephtpgdyobj07/10/2026 8:30 AM ESTProcedure Visit [facility] [address] [facility] [place] [phone] Brice Day DO [address] [facility] [place] [address] NameTypePriorityAssociated DiagnosesOrder ScheduleBilateral screening mammogram ImagingRoutine Encounter [...]
--- NOTE | 2025-06-11 07:36 | MM_ITS ---
Patient Name: KASSANDRA ARIZMENDI MR#: [id number] : 1980 Exam Date: 06/11/2025 Ordering Doctor: DR TAMMY TARANGO . RADIOLOGY REPORT PROCEDURE: MM TOMOSYNTHESIS SCREENING BI COMPARISON: MM TOMOSYNTHESIS SCREENING BI, 05/13/2024. MM TOMOSYNTHESIS SCREENING BI, 05/10/2023. MG MAMM SCREEN 3D [place] CAD, 05/07/2022. INDICATIONS: Screening Calculator Name NCI Breast Cancer Risk Assessment Tool 5 Year Breast Cancer Risk 0.80% Lifetime Breast Cancer Risk 10.80% Personal Breast Cancer No Personal Ovarian Cancer No Treatments None Family Cancers Mother with rectal cancer at age 45. LOCATION: [facility] BREAST COMPOSITION: The breasts are heterogeneously dense, which may obscure small masses. FINDINGS: DIAGNOSTIC CATEGORY 1--NEGATIVE. RIGHT BREAST: No significant suspicious finding. LEFT BREAST: No significant suspicious finding. RECOMMENDATIONS: ROUTINE MAMMOGRAM AND CLINICAL EVALUATION IN 12 MONTHS. Dictated by: Braxton Eric MD on 06/11/2025 at 10:21 Approved by: Braxton Eric MD on 06/11/2025 at 10:22
--- OUTSIDE RECORDS SUMMARY | 2025-06-11 07:36 | XMS_ITS | CCD ---
Author Organization [facility] Care Team Providers Care Burglar Alarm Inspector Name Role Phone PERRI, DR LOUIE Swan Admitting Unavailable NADERER, DR LOUIE Swan Attending Unavailable NADERER, DR LOUIE Swan Consulting Unavailable NADERER, DR LOUIE Swan Primary Care Unavailable BARB, DR MUNOZ Consulting Unavailable NADERER, DR LOUIE Swan Primary Care Unavailable BARB, DR MUNOZ Admitting Unavailable BARB, DR MUNOZ Attending Unavailable NADERER, DR LOUIE Swan Primary Care Unavailable FROST, DR LENORE Looney Consulting Unavailable BARB, DR MUNOZ Admitting Unavailable BARB, DR MUNOZ Attending Unavailable BARB, DR MUNOZ Consulting Unavailable Louie Yates MD Primary Care Provider [phone] Ly DOGinny Attending Provider [phone] Ly Ginny BISHOP Referring Provider Louie Yates MD Primary Care Provider [phone] Maru Ginny L Consulting Unavailable Ginny Mahoney Attending Unavailable Ginny Mahoney Referring Unavailable Louie Yates Primary Care Unavailable Ginny Mahoney Admitting Unavailable Louie Yates MD Primary Care Provider LENORE GRIFFIN Referring Unavailable POCOSLENORE Attending Unavailable ANA FERNANDEZ Attending Unavailable POCOSLENORE Referring Unavailable NICO SALAZAR Attending Unavailable POCOSLENORE Referring Unavailable TAMMY DAY Attending Unavailable Allergies Allergy ClassificationReported Allergen(s)Allergy TypeDate of OnsetReaction(s) Facility (1 source)CefaclorDrug Tegqeea11-56-8452Bow [facility] Repository (15 sources)CefaclorDrug Ucxfkoi75-19-8947UhdrrxlXEM[facility] (1 source)CefaclorDrug Xonjyts87-58-8846QfoerioplWvumedicine [facility] Repository Medications Current Medications MedicationDrug Class(es)DatesSig (Normalized)Sig (Original)meloxicam 7.5 mg oral tablet (6 sources)Nonsteroidal Anti-inflammatory DrugStart: 04-07-2025 End: 09-11-6142nbem 1 tablet by mouth once daily at [...] papillomavirus (HPV); Translations: [ENC SCREENING HUMAN PAPILLOMAVIRUS]Onset: 03-10-9417YzssvmtvTfapaphmfio deficiencies (1 source)Vitamin D deficiency, unspecified; Translations: [VITAMIN D DEFICIENCY UNSPECIFIED]Onset: 93-24-2848OabkfqmPlmel connective tissue disease (6 sources)Retrocalcaneal bursitis of right foot; Translations: [Other enthesopathy of right foot and ankle]63-64-9910SixijmfgDjaxf non-traumatic joint disorders (6 sources)Ankle pain; Translations: [Pain in right ankle and joints of right foot]26-23-8681WxvguwsrBqgky screening for suspected conditions (not mental disorders or infectious disease) (13 sources)Encounter for screening mammogram for malignant neoplasm of breast; Translations: [Encounter for screening for malignant neoplasm of cervix]Onset: 98-91-5996NwzviuhuZuivllco codes; unclassified (1 source)Family history of malignant neoplasm of other organs or systems; Translations: [FAM HX MALIG NEOPLASM OTH ORGN/SYS]Onset: 12-47-0504Piuvtwtf Sprains and strains (4 sources)Sprain of right ankle; Translations: [Sprain of unspecified ligament of right ankle, sequela]72-15-7530Ovquqjhi Past or Other Problems Problem ClassificationProblemDateDocumented DateEpisodic/ChronicUnclassified (2 sources)Sprain of right -86-5330 Results Test NameValueInterpretationReference RangeFacilityIGP,APTIMA HPV,AGE GDLNon 30-66-5025GPH GDLN ACOG TESTINGNote.NOMS HealthcareComment on above:TESTS RESULT FLAG UNITS REF RANGE LAB Clinician Provided Cytology Information Source.............Cervix;Endocervix No. of containers..01 ThinPrep Vial Age Algo ACOG Hilda... FLAG LEGEND: L-Low Normal,H-High Normal,LL-Alert Low,HH-Alert High <-Panic Low,>-Panic High,A-Abnormal,AA-Critical Abnormal Performed at: 01 =[address] [address] Lisa Whyte MD, HPV APTIMANegativeNegativeNOMS HealthcareComment on above:This nucleic acid amplification test detects fourteen high- risk HPV types (16,18,31,33,35,39,45,51,52,56,58,59,66,68) without differentiation. Performed at: =[address] [id number] Public Housing Interviewer: Lisa Whyte MD, Phone: [phone] Performed at: [address] [id number] Public Housing Interviewer: Lisa Whyte MD, Phone: [phone] IGP, APTIMA HPV, RFX 16/18,45Note.NOMS HealthcareComment on above:TESTS RESULT FLAG UNITS REF RANGE LAB DIAGNOSIS: 02 NEGATIVE FOR INTRAEPITHELIAL LESION OR MALIGNANCY. Specimen adequacy: 02 Satisfactory for evaluation. Endocervical and/or squamous metaplastic cells (endocervical component) are present. Performed by: 02 Kassandra Curtis, Shrimp Picker ([facility]) . 02 Note: Note 02 The Pap [...] This liquid based ThinPrep(R) pap test was interpreted using the ADARTIS(R) Utrip(TM) Cervical Algorithm whole slide imaging system. HPV Genotype Reflex Note 02 Criteria not met, HPV Genotype not performed. FLAG LEGEND: L-Low Normal,H-High Normal,LL-Alert Low,HH-Alert High <-Panic Low,>-Panic High,A-Abnormal,AA-Critical Abnormal Performed at: 02 [facility] [address] [place] [address] Lisa Whyte MD, BRUSH-SPATULA CERVIX ENDOCERVIX CLINISYNCNOMS HealthcareHCG ( test) IA.rapid Ql (U)Ordered By: Ginny Mahoney on 14-23-2292OBZ ( test) Ql (U)Urine human chorionic gonadotropin (hCG) detection by immunoassayWvumedicine Harrison Community Hospital HCG,Urineon 32-60-5597Zslr HCG ( test) Ql (U)NegativeNoVidant Pungo Hospital Physician GroupComment on above:Result Comment: PERFORMED BY: [facility] [address] [place] [address] PATHOLOGIST PRIMARY SPECIAL EDUCATOR VJ HERNANDEZ M.D.Performed By: #### UHCG #### [place] [address] USAMM TOMOSYNTHESIS SCREENING BIon 10-08-30[place] [address] Mammography Report Signed Patient: KASSANDRA CHARLES MR#: [id number] : 1980 Acct:[id number] Age/Sex: 44 / F ADM Date: 05/13/24 Loc: MAMMO Attending Dr: Tammy Day D.O. Ordering Physician: Tammy Day D.O. Results: Date of Service: 05/13/24 Follow Up: Procedure(s): MM tomosynthesis screening BI Accession Number(s): [id number] cc: Tammy Day D.O.; Physician,Non-Staff [place] Patient Name: KASSANDRA CHARLES MR#: [id number] : 1980 Exam Date: 05/13/2024 Ordering Doctor: [...] rectal cancer at age 47. LOCATION: [facility] BREAST COMPOSITION: The breasts are extremely [...] Signed By: 05/13/24 1508 DD/ 1508 TD/TT: Heating Unit Installer:TBHRadiology, Radiologist, - 05/13/2024 [place] [address] Mammography Report Signed Patient: KASSANDRA CHARLES MR#: [id number] : 1980 Acct:[id number] Age/Sex: 44 / F ADM Date: 05/13/24 Loc: MAMMO Attending Dr: Tammy Day D.O. Ordering Physician: Tammy Day D.O. Results: Date of Service: 05/13/24 Follow Up: Procedure(s): MM tomosynthesis screening BI Accession Number(s): [id number] cc: Tammy Day D.O.; Physician,Non-Staff [place] Patient Name: KASSANDRA CHARLES MR#: [id number] : 1980 Exam Date: 05/13/2024 Ordering Doctor: [...] rectal cancer at age 47. LOCATION: [facility] BREAST COMPOSITION: The breasts are extremely [...] By: Yazan Steward M.D. Signed By: 05/13/24 150 DD/ 07 TD/TT: Heating Unit Installer: [facility] ServicesRadiology Study observation (narrative)[facility] TOMOSYNTHESIS SCREENING BIOrdered By: Radiologist Radiology on 36-42-1368GQ[facility] Work Phone: IGP,APTIMA HPV,AGE GDLNon 70-60-2319YXA LN ACOG TESTINGNote.[facility] Health ServicesComment on above:TESTS RESULT FLAG UNITS REF RANGE LAB Clinician Provided Cytology Information Source.............Cervix;Endocervix No. of containers..01 ThinPrep Vial Age Algo ACOG Hilda... - FLAG LEGEND: L-Low Normal,H-High Normal,LL-Alert Low,HH-Alert High <-Panic Low,>-Panic High,A-Abnormal,AA-Critical Abnormal Performed at: 01 =[address] [address] Lisa Whyte MD, HPV APTIMANegativeNegativeNOMS HealthcareComment on above:This nucleic acid amplification test detects fourteen high- risk HPV types (16,18,31,33,35,39,45,51,52,56,58,59,66,68) without differentiation. Performed at: =[address] [id number] Public Housing Interviewer: Lisa Whyte MD, Phone: [phone] Performed at: [address] [id number] Public Housing Interviewer: Lisa Whyte MD, Phone: [phone] IGP, APTIMA HPV, RFX 16/18,45Note.NOMS HealthcareComment on above:TESTS RESULT FLAG UNITS REF RANGE LAB DIAGNOSIS: 02 NEGATIVE FOR INTRAEPITHELIAL LESION OR MALIGNANCY. Specimen adequacy: 02 Satisfactory for evaluation. Endocervical and/or squamous metaplastic cells (endocervical component) are present. Performed by: 02 Jesusita Olivia, Medical Program Specialist ([facility]) . 02 Note: Note 02 The Pap [...] <-Panic Low,>-Panic High,A-Abnormal,AA-Critical Abnormal Performed at: 02 [address] [facility] [address] [address] Lisa Whyte MD, BRUSH-SPATULA CERVIX ENDOCERVIX CLINISYNCNOMS [facility] AUTO DIFFon 67-31-0712EIIL #0.0 103/ulNormal0.0-0.1 [facility] CenterComment on above:Performed By: #### CBC #### [facility] [address] [place] [address] Dr. Mounika BrownBasophils/100 WBC (Bld)0.4 %Normal0.2-2.0[facility] Comment on above:Performed By: #### CBC #### [facility] [address] [place] [address] Dr. Mounika Leon #0.2 103/ulNormal0.0-0.7ThLancaster Municipal HospitalComment on above: Performed By: #### CBC #### [facility] [address] [place] [address] Dr. Mounika Huertasosinophils/100 WBC (Bld)2.2 %Normal0.9-7.0[facility] Comment on above:Performed By: #### CBC #### [facility] [address] [place] [address] Dr. Mounika Huertasrythrocyte distribution width (RBC) [Ratio]12.8 %Lrhler58.0-15.0 [facility] CenterComment on above:Performed By: #### CBC #### [facility] [address] [place] [address] Dr. Mounika BrownHematocrit (Bld) [Volume fraction]42.6 %Iciyyd70.0-48.0The [facility] HospitalComment on above:Performed By: #### CBC #### [facility] [address] [place] [address] Dr. Mounika BrownHemoglobin (Bld) [Mass/Vol]14.0 g/gFPylptd01.0-16.0The [facility] HospitalComment on above:Performed By: #### CBC #### [facility] [address] [place] [address] Dr. Mounika BrownIG #0.02 10e3/ulNormal0.00-0.03The [facility] HospitalComment on above:Performed By: #### CBC #### [facility] [address] [place] [address] Dr. Mounika BrownIG %0.3 %Normal0.0-0.5The [facility] HospitalComment on above: Performed By: #### CBC #### [facility] [address] [place] [address] Dr. Mounika Noel #3.1 103/ulNormal1.2-3.8The [facility] HospitalComment on above:Performed By: #### CBC #### [facility] [address] [place] [address] Dr. Mounika Lomelimphocytes/100 WBC (Bld)43.8 %Xngcvv99.5-60.0The [facility] HospitalComment on above:Performed By: #### CBC #### [facility] [address] [place] [address] Dr. Mounika BrownMANUAL DIFF REQNONormalThe [facility] HospitalComment on above: Performed By: #### CBC #### [facility] [address] [place] [address] Dr. Mounika Singh (RBC) [Entitic mass]29.7 jaJjmwvd86.7-34.0The [facility] HospitalComment on above:Performed By: #### CBC #### [facility] [address] [place] [address] Dr. Mounika HicksHC (RBC) [Mass/Vol]32.9 g/tUAfwptq48.9-35.2The [facility] HospitalComment on above:Performed By: #### CBC #### [facility] [address] [place] [address] Dr. Mounika HicksV (RBC) [Entitic vol]90.3 lGMavmem07.0-99.0The [facility] HospitalComment on above:Performed By: #### CBC #### [facility] [address] [place] [address] Dr. Mounika Cheng #0.5 103/ulNormal0.3-0.8The [facility] HospitalComment on above:Performed By: #### CBC #### [facility] [address] [place] [address] Dr. Mounika Andersonocytes/100 WBC (Bld)6.8 %Normal1.7-12.0The [facility] Comment on above:Performed By: #### CBC #### [facility] [address] [place] [address] Dr. Mounika Yoon #3.3 103/ulNormal1.4-6.5The [facility] HospitalComment on above:Performed By: #### CBC #### [facility] [address] [place] [address] Dr. Mounika Riverautrophils/100 WBC (Bld)46.5 %Upjeuc31.0-75.0The [facility] HospitalComment on above:Performed By: #### CBC #### [facility] [address] [place] [address] Dr. Mounika Daileylet mean volume (Bld) [Entitic vol]10.8 fLNormal9.5-13.5The [facility] HospitalComment on above:Performed By: #### CBC #### [facility] [address] [place] [address] Dr. Mounika BrownPLT266 103/bbOgyvyx432-955Ikb [facility] HospitalComment on above: Performed By: #### CBC #### [facility] [address] [address] [address] Mounika BrownRBC4.72 106/ulNormal4.20-5.40The [facility] on above:Performed By: #### CBC #### [facility] [address] [address] [address] Mounika BrownWBC7.2 103/ulNormal4.0-11.0The [facility] on above: Performed By: #### CBC #### [facility] [address] [place] [address] Dr. Mounika BrownGLYCOHEMOGLOBIN A1Con 38-33-5353DSD RECOMMENDATIONSEE [facility] HospitalComkalkaska memorial health center on above:Result Comment: ADA RECOMMENDED LIMIT 4.0 - 6.0 ADA THERAPEUTIC TARGET < 7.0 ACTION SUGGESTED > 7.0Performed By: #### A1C #### [facility] [address] [place] [address] Dr. Mounika BrownGlucose [Mass/Vol]105 mg/dLNoBarney Children's Medical Center on above:Performed By: #### A1C #### [facility] [address] [place] [address] Dr. Mounika BrownHbA1c (Bld) [Mass fraction]5.3 %Normal4.5-6.2[facility] on above:Performed By: #### A1C #### [facility] [address] [place] [address] Dr. Mounika BrownLIPID PROFILEon 99-83-7102HXOL-HDL RATIO NORMSEE [facility] on above:Result Comment: 3.3 - 4.4 LOW RISK 4.4 - 7.1 AVERAGE RISK 7.1 - 11.0 MODERATE RISK >11.0 HIGH RISKPerformed By: #### LIVER, LIPID, BMP, TSH #### [facility] [address] [place] [address] Dr. Mounika BrownCholesterol [Mass/Vol]237 mg/dLCritically high<=200The [facility] on above:Performed By: #### LIVER, LIPID, BMP, TSH #### [facility] [address] [address] [address] Mounika Goffesterol in HDL [Mass/Vol]89 mg/dLCritically ffrx32-02FhoHarrison Community Hospitalment on above:Performed By: #### LIVER, LIPID, BMP, TSH #### [facility] [address] [address] [address] Mounika Goffesterol in LDL [Mass/Vol]138.2 mg/dLNoTriHealth McCullough-Hyde Memorial HospitalComment on above:Performed By: #### LIVER, LIPID, BMP, TSH #### [facility] [address] [address] [address] Mounika Badillo.total/Cholesterol in HDL [Mass ratio]2.7 {ratio} NormalThe [facility] HospitalComment on above:Performed By: #### LIVER, LIPID, BMP, TSH #### [facility] [address] [place] [address] Dr. Mounika Ho NORMAL> or = 60 mg/dl - LOW CARDIOVASCULAR RISK <40 mg/dl - HIGH CARDIOVASCULAR RISKWexner Medical CenterComment on above:Performed By: #### LIVER, LIPID, BMP, TSH #### [facility] [address] [address] [address] Mounika Arteaga CALC NORMALSEE BELOWWexner Medical CenterComment on above:Result Comment: <100 mg/dl OPTIMAL 100 - 129 mg/dl NEAR OR ABOVE OPTIMAL 130 - 159 mg/dl BORDERLINE HIGH 160 - 189 mg/dl HIGH >190 mg/dl VERY HIGH Performed By: #### LIVER, LIPID, BMP, TSH #### [facility] [address] [address] [address] Mounika BrownTriglyceride [Mass/Vol]49 mg/dLNormal<=150[facility] Comment on above:Performed By: #### LIVER, LIPID, BMP, TSH #### [facility] [address] [address] [address] Mounika AppiahLDL CALC9.8 mg/dLNoTriHealth McCullough-Hyde Memorial HospitalComment on above: Performed By: #### LIVER, LIPID, BMP, TSH #### [facility] [address] [place] [address] Dr. Mounika Mayen PROFILEon 79-02-1201Kirdgpn [Mass/Vol]4.3 g/dLNormal3.4-5.0 [facility] CenterComment on above:Performed By: #### LIVER, LIPID, BMP, TSH #### [facility] [address] [place] [address] Dr. Mounika BrownAlbumin/Globulin [Mass ratio]1.2 {ratio}NormalThe [facility] HospitalComment on above:Performed By: #### LIVER, LIPID, BMP, TSH #### [facility] [address] [place] [address] Dr. Mounika Cruz [Catalytic activity/Vol]49 U/YSuexnd06-425Stj [facility] HospitalComment on above:Performed By: #### LIVER, LIPID, BMP, TSH #### [facility] [address] [place] [address] Dr. Mounika Varela [Catalytic activity/Vol]17 U/ITmzxdr47-43Sdz [facility] HospitalComment on above:Performed By: #### LIVER, LIPID, BMP, TSH #### [facility] [address] [place] [address] Dr. Mounika Abrams [Catalytic activity/Vol]19 U/XUnqkzm57-68Oyg [facility] Springfieldment on above:Performed By: #### LIVER, LIPID, BMP, TSH #### [facility] [address] [place] [address] Dr. Mounika Yoder, CONJUGATED0.2 mg/dLNormal0.0-0.2[facility] Comment on above:Performed By: #### LIVER, LIPID, BMP, TSH #### [facility] [address] [place] [address] Dr. Mounika Palmirubin [Mass/Vol]1.0 mg/dLNormal0.2-1.0The [facility] Comment on above:Performed By: #### LIVER, LIPID, BMP, TSH #### [facility] [address] [place] [address] Dr. Mounika BrownGlobulin (S) [Mass/Vol]3.6 g/dLNormalThe [facility] HospitalComment on above:Performed By: #### LIVER, LIPID, BMP, TSH #### [facility] [address] [place] [address] Dr. Mounika BrownProtein [Mass/Vol]7.9 g/dLNormal6.4-8.2The [facility] Comment on above:Performed By: #### LIVER, LIPID, BMP, TSH #### [facility] [address] [place] [address] Dr. Mounika BrownPROF CHEM 8 (BAS METB)on 62-96-9142Hksbt gap [Moles/Vol]14.2 mmol/LNormalThe [facility] HospitalComment on above:Performed By: #### LIVER, LIPID, BMP, TSH #### [facility] [address] [place] [address] Dr. Mounika BrownCalcium [Mass/Vol]9.3 mg/dLNormal8.5-10.1The [facility] Comment on above:Performed By: #### LIVER, LIPID, BMP, TSH #### [facility] [address] [place] [address] Dr. Mounika BrownChloride [Moles/Vol]102 mmol/HWhubsq63-892OltThe [facility] Comment on above:Performed By: #### LIVER, LIPID, BMP, TSH #### [facility] [address] [place] [address] Dr. Mounika BrownCO2 [Moles/Vol]24.1 mmol/VBneccj14.0-32.0The [facility] Comment on above:Performed By: #### LIVER, LIPID, BMP, TSH #### [facility] [address] [place] [address] Dr. Mounika BrownCreatinine [Mass/Vol]0.81 mg/dLNormal0.55-1.02The [facility] HospitalComment on above:Performed By: #### LIVER, LIPID, BMP, TSH #### [facility] [address] [place] [address] Dr. Mounika HuertasGFR-AF COLOMBIAN>60Normal>=60The [facility] Springfieldment on above:Performed By: #### LIVER, LIPID, BMP, TSH #### [facility] [address] [address] [address] Mounika HuertasGFR-NON AF COLOMBIAN>60Normal>=60The [facility] HospitalComment on above:Performed By: #### LIVER, LIPID, BMP, TSH #### [facility] [address] [address] [address] Mounika BrownGlucose [Mass/Vol]80 mg/eVHahjfq08-449XnpThe [facility] Comment on above:Performed By: #### LIVER, LIPID, BMP, TSH #### [facility] [address] [address] [address] Mounika BrownPotassium [Moles/Vol]3.3 mmol/LCritically low3.5-5.1The [facility] Springfieldment on above:Performed By: #### LIVER, LIPID, BMP, TSH #### [facility] [address] [address] [address] Mounika BrownSodium [Moles/Vol]137 mmol/SGaarxn428-267Oji [facility] Comment on above:Performed By: #### LIVER, LIPID, BMP, TSH #### [facility] [address] [address] [address] Mounika BrownUrea nitrogen [Mass/Vol]17.0 mg/dLNormal7.0-18.0The [facility] Springfieldment on above:Performed By: #### LIVER, LIPID, BMP, TSH #### [facility] [address] [address] [address] Mounika Garnett nitrogen/Creatinine [Mass ratio]21.0 mg/mgNormalThe [facility] HospitalComkalkaska memorial health center on above:Performed By: #### LIVER, LIPID, BMP, TSH #### [facility] [address] [address] [address] Mounika Morris 05-82-1032FAA7.290 uIU/mLNormal0.358-3.740The Mannington HospitalComment on above:Performed By: #### LIVER, LIPID, BMP, TSH #### [facility] [address] [place] [address] Dr. Mounika BrownVITAMIN D 25 OHon 04-39-9154NOZ D 25-OH29.1 ng/mLNormalThe [facility] Medical CenterComment on above:Performed By: #### VITAD #### [facility] [address] [place] [address] Dr. Mounika Chacon D RANGESSEE BELOWWexner Medical CenterComment on above: Result Comment: <20 ng/mL Vit D deficient 20 - <30 ng/mL Vit D insufficient 30 - 100 ng/mL Vit D sufficient >100 ng/mL Potential ToxicityPerformed By: #### VITAD #### [facility] [address] [place] [address] Dr. Mounika BrownMG MAMM SCREEN 3D WYATT CADon 45-76-4589TR MAMM SCREEN 3D WYATT CAD Patient: KASSANDRA CHARLES Exam Date: 05/07/2022 : 1980 Gender:F Ordering : DR TAMMY DAY . Admission #: [id number] Family : Order #: [id number] CLICK HERE TO VIEW EXAM RADIOLOGY REPORT PROCEDURE: MAMMOGRAM SCREENING 3D BILATERAL CAD COMPARISON: None. INDICATIONS: Screening mammography Calculator Name NCI Breast Cancer Risk Assessment Tool 5 Year Breast Cancer Risk 0.60% Lifetime Breast Cancer Risk 11.10% Personal Breast Cancer No Personal Ovarian Cancer No Treatments None Family Cancers Mother with retina cancer at age 45. [facility] [facility] BREAST COMPOSITION: Extremely dense, which lowers [...] Lenore Perdomo MD on 05/07/2022 at 10:27[facility] ACOG PANEL 2: 30 to 67on 05-01-2022..NormalThe University Of Toledo Medical CenterComkalkaska memorial health center on above:Result Comment: Performed at: WBPerformed By: #### [id number] #### [facility] [address] [place] [address] Dr. Mounika Putnam Gdln ACOG Grqorbz76-80TpsiobKhqTriHealth McCullough-Hyde Memorial HospitalComkalkaska memorial health center on above:Performed By: #### [id number] #### [facility] [address] [place] [address] Dr. Mounika BrownDIAGNOSIS:CommentProtestant Deaconess Hospital on above: Result Comment: NEGATIVE FOR INTRAEPITHELIAL LESION OR MALIGNANCY. Performed at: WBPerformed By: #### [id number] #### [facility] [address] [place] [address] Dr. Mounika BrownHPV AptimaNegativeNormalNegativeThe University Of Toledo Medical CenterComkalkaska memorial health center on above:Result Comment: This nucleic acid amplification test detects fourteen high-risk HPV types (16,18,31,33,35,39,45,51,52,56,58,59,66,68) without differentiation. Performed at: =GPerformed By: #### [id number] #### [facility] [address] [place] [address] Dr. Mounika BrownMethodology:CommentProtestant Deaconess Hospital on above: Result Comment: This liquid based ThinPrep(R) pap test was screened with the use of an image guided system. Performed at: WBPerformed By: #### [id number] #### [facility] [address] [place] [address] Dr. Mounika BrownNote:CommentProtestant Deaconess Hospital on above:Result Comment: The Pap smear is a screening test designed to aid in the detection of premalignant and malignant conditions of the uterine cervix. It is not a diagnostic procedure and should not be used as the sole means of detecting cervical cancer. Both false-positive and false-negative reports do occur. . Performed at: WBPerformed By: #### [id number] #### [facility] [address] [place] [address] Dr. Mounika BrownPerformed by:CommentNoTriHealth McCullough-Hyde Memorial HospitalComment on above: Result Comment: Maria R Saravia, Medical Program Specialist (ASCP) Performed at: Performed By: #### [id number] #### [facility] [address] [address] [address] Mounika BrownSpecimen adequacy:CommentWexner Medical CenterComkalkaska memorial health center on above:Result Comment: Satisfactory for evaluation. Endocervical and/or squamous metaplastic cells (endocervical component) are present. Performed at: WBPerformed By: #### [id number] #### [facility] [address] [address] [address] Mounika Brown Vital Signs Date TimeVital SignValuePerforming YyadqjeraGtvnzezz49-18-8794 08:37-0500Body euimww820.2 cmCorey Barb DO Work Phone: [facility] ServicesUhlmbrvffo90-46-6012 08:37-0500Body mass index (BMI) [Ratio]23.18 kg/m1Bgaan Barb DO Work Phone: [facility] ServicesPhurzlrcys94-27-8795 08:37-0500Body gnyuhq16.13 kgCorey Barb DO Work Phone: [facility] ServicesWdpolfgfix86-73-1458 14:23-0400Body muqszv118.2 cmDavid Pocos DO Work Phone: [facility] ServicesAmhujmjdae88-75-7494 14:23-0400Body mass index (BMI) [Ratio]22.55 kg/r6Nqhjd Pocos DO Work Phone: [facility] ServicesAzglpmtsju51-76-8179 14:23-0400Body dvmpny16.32 kgDavid Pocos DO Work Phone: [facility] ServicesXvagjroybq36-52-1377 11:43-0500Diastolic blood mm[Hg]Ginny Mahoney DO Work Phone: [facility]01-23-2025 11:43-0500 Heart rate58 /minCatherine Ly DO Work Phone: [phone] [place], [place] 6845201-23-2025 11:43-0500 Respiratory rate16 /minCatherine Ly DO Work Phone: [phone] [place], [place] 6845201-23-2025 11:43-0500 SaO2% (BldA) [Mass fraction]99 %Ginny Ly DO Work Phone: [phone] [place], [place] 6845201-23-2025 11:43-0500 Systolic blood ndwkgnie330 mm[Hg]Ginny Ly DO Work Phone: [phone] [place], [place] 6845201-23-2025 10:31-0500 Body bddacy696.18 cmCatherine Ly DO Work Phone: [phone] [place], [place] 6845201-23-2025 10:31-0500 Body hbwwyh01.5 kgCatherine Ly DO Work Phone: [phone] [place], [place] 5776109-30-2024 08:35-0400 Body ypofya513.2 cmCorey Barb DO Work Phone: [facility] ServicesEntluuemxq05-02-7919 08:35-0400Body mass index (BMI) [Ratio]21.93 kg/p1Ghtew Barb DO Work Phone: [facility] ServicesEzmgcsdpxv87-97-8717 08:35-0400Body iqbjfy82.5 kg Tammy Barb DO Work Phone: [facility] ServicesIozqwqbqoj89-95-5597 08:35-0400Diastolic blood ujwbqwyn70 mm[Hg]Tammy Barb DO Work Phone: [facility] ServicesUcyowmjazf17-63-6290 08:35-0400Systolic blood bxywijnn108 mm[Hg]Tammy Barb DO Work Phone: [facility] Encounters Encounter DateEncounter TypeCare ProviderFacilityStart: 06-08-2025 End: 30-97-9991Axnssd flowsheetCorey Barb DO Work Phone: noPA [place] OBGYNStart: 06-08-2025 End: 83-66-6069Qoipsu flowsheetCorey Abrb DO Work Phone: no [place] OBGYNStart: 06-08-2025 End: 37-99-3726Zniucyocl Result EncounterCorey Barb DO Work Phone: no External Department UnsolicitedStart: 06-08-2025 End: 85-20-4117Trvpmgq encounter procedureCorey Barb DO Work Phone: no HealthcareStart: 06-08-2025 End: 68-80-9866Qacjslvb preventive med est patient 40-64yrsCorey Barb DO Work Phone: noMS McdonaldJackie OBGYNComment on above:Well woman exam with routine gynecological exam; Encounter for screening mammogram for malignant neoplasm of breastStart: 06-08-2025 End: 17-11-1326fjmhhwtuptGQDEQ FAZIONot AvailableStart: 04-28-2025 End: 29-62-6810Dcvylx flowsheetMarshall Brink PTANOMS [facility] Start: 04-28-2025 End: 36-90-9501Qyhygd flowsheetMarshall Brink PTANOMS [facility] Start: 04-28-2025 End: 07-28-0580thgvtctkpsHfumkdja Brink PTANOMS [facility] Physical TherapyComment on above:Right ankle pain, unspecified chronicity (Primary Dx); Retrocalcaneal bursitis, right; Mild ankle sprain, right, sequelaStart: 04-22-2025 End: 43-21-8446Agwcvd flowsheetSammantha Fernandez PTNOMS [facility] Start: 04-22-2025 End: 81-99-5494Vbndib flowsheetSammantha Fernandez PTNOMS [facility] Start: 04-22-2025 End: 58-06-5897rmlhartljyXzxpdvwxc Fernandez PTNOMS [facility] Comment on above:Right ankle pain, unspecified chronicity (Primary Dx); Retrocalcaneal bursitis, right; Mild ankle sprain, right, sequelaStart: 04-07-2025 End: 12-33-5497onltbknmnnFYWVO A POCOSNot AvailableStart: 04-07-2025 End: 30-82-0063Hhktutn encounter procedureDavid A Pocos DO Work Phone: noms [place] OrthopaedicsComment on above:Right ankle pain, unspecified chronicity (Primary Dx); Retrocalcaneal bursitis, right; Mild ankle sprain, right, sequelaStart: 04-07-2025 End: 80-67-2749ccspcbkcjjFBEVO A POCOSNot AvailableStart: 12-55-1410Qkb-patient / Non-visitCatherine Ly DO Work Phone: [facility] GroupFormerly [facility] Work Phone: Start: 08-27-2024 End: 77-57-6047Kvtaejwyw to same day surgery centerCatherine Ly DO Work Phone: [facility] Work Phone: Start: 08-27-2024 End: 23-16-6183ioqoeikfyuQimvangcs L Ly DO Work Phone: [facility] Work Phone: Start: 05-13-2024 End: 30-86-1621Swfaotaxg Result EncounterCorey Barb DO Work Phone: noms External Department UnsolicitedStart: 05-13-2024 End: 10-97-0134Bxzzbwvsb Result EncounterCorey Barb DO Work Phone: noms External Department UnsolicitedStart: 05-04-2024 End: 94-20-7037Tycggh flowsheetCorey Barb DO Work Phone: noms BCP OBStart: 05-04-2024 End: 63-47-3529Edpmoxtef Result EncounterCorey Barb DO Work Phone: noms External Department UnsolicitedStart: 05-04-2024 End: 45-65-8639Kiujcxuly Result EncounterCorey Barb DO Work Phone: noms External Department UnsolicitedStart: 05-04-2024 End: 15-20-4421Yjfmkab encounter procedureCorey Barb DO Work Phone: noms HealthcareStart: 05-04-2024 End: 06-84-8662Bcqgbwvb preventive med est patient 40-64yrsCorey Barb DO Work Phone: noms BCP OBComment on above:Breast cancer screening by mammogram; Well woman exam with routine gynecological examStart: 97-55-0405Bgjljevhr for general adult medical examination without abnormal findingsDR LOUIE ORORTThe Bellevue Hospitaltart: 05-24-2022 End: 43-65-8764apubokkiepOG LOUIE Swan NADERERFacility:T3Qvcpj: 05-24-2022 End: 44-96-2578Waxtnuunx for general adult medical examination without abnormal findingsDR LOUIE Swan NADERERFacility:Z6Gfigd: 05-07-2022 End: 70-84-5438qkrgqljzrmQV LOUIE A NADERERFacility:T6Jivkv: 04-24-2022 End: 16-77-0853nkoxhdqmrwRD TAMMY FAZIOFacility:H1 Procedures DateProcedureProcedure DetailPerforming ClinicianStart: 62-61-2443AWF,APTIMA HPV,AGE GDLNCorey Barb DO Work Phone: Start: 20-21-4844Tqgjw ankle complete minimum 3 views Jay Pocos DO Work Phone: Start: 68-25-6229MllkfdcctfxOuszxifva Ly DO Work Phone: Start: 67-67-8573TP TOMOSYNTHESIS SCREENING BICorey Barb DO Work Phone: Start: 39-54-5100SnlayevywskXhocu Pocos DO Work Phone: Start: 72-40-5566RWY,APTIMA HPV,AGE GDLNCorey Barb DO Work Phone: Start: 01-10-5334Emiuuggajro observation [Identifier] in Cervix by Cyto stainDavid Pocos DO Work Phone: Start: 70-36-0235RpndyiheqvfOmwmn Barb DO Work Phone: Start: 86-20-1649Vhlhiliddpb observation [Identifier] in Cervix by Cyto stainCorey Barb DO Work Phone: Plan of Treatment DateCare ActivityDetailAuthorStart: 86-63-2315Otbqdfvsm for malignant neoplasm of cervixNOMS HealthcareStart: 86-56-3071Tlwqfcyfg for malignant neoplasm of cervixPap SmearNOMS HealthcareStart: 58-77-6086Qzzjqjfuj for malignant neoplasm of cervixPap SmearNOMS HealthcareStart: 06-14-2026 End: 70-53-4865Qfkewzc encounter /10/2026 8:30 AM EST Procedure Visit NOM[facility] Jackie ORELLANAN [address] [place] [phone] Tammy Day DO [address] [place] [address] NOMFlory [place] OBGYNStart: 06-08-2025 End: 93-47-8638WJ Breast - bilateral ScreeningBilateral screening mammogram Imaging Routine Encounter for screening mammogram for malignant neoplasm of breast Expected: 06/08/2025 (Approximate), Expires: 08/08/2026[facility] Work Phone: comment on above:Expected: 06/08/2025 (Approximate), Expires: 08/08/2026Start: 06-08-2025 End: 88-92-6654Iutyoan encounter procedureNOMS [place] OBGYNComment on above: ArrivedStart: 05-24-2025 End: 67-43-5057ypusjnehhd13/20/2025 8:30 AM EDT Treatment [facility] [address] [place], [id number] Ana Fernandez PTNOMS [place] Physical TherapyStart: 05-19-2025 End: 29-78-5357cvpeabhlfj22/15/2025 7:30 AM EDT Treatment [facility] [address] [place], [id number] Kassandra Pedro PTANO [facility] TherapyStart: 24-86-5260Cfliibabr for malignant neoplasm of breastMcLaren Greater Lansing HospitalStart: 05-12-2025 End: 54-24-6141mrdbzjjtiu37/08/2025 7:30 AM EDT Treatment [facility] [address] [place], [id number] Kassandra Pedro PTANOMS [facility] Physical TherapyStart: 05-07-2025 End: 17-34-3708Oazmcbv encounter skimentpj99/03/2025 8:15 AM EDT Office Visit [facility] [address] [place] [address] Lenore Griffin DO [address] [facility] [address] NOMS [facility] OrthopaedicsStart: 05-06-2025 End: 00-71-3197Gbvymnb encounter xocrvrntz84/02/2025 8:30 AM EDT Office Visit [facility] [address] [place] [phone] Tammy Day DO [address] [place] [address] NOMS BCP OBStart: 05-05-2025 End: 57-10-2565srluuqagzs02/01/2025 7:30 AM EDT Treatment [facility] [address] [place], [id number] Kassandra Pedro PTANO [facility] TherapyStart: 04-28-2025 End: 40-02-7917dejxxeaaki15/24/2025 7:30 AM EDT Treatment [facility] [address] [place], [id number] Nico Salazar PTANOMS [place] Physical TherapyStart: 04-22-2025 End: 58-44-7868fwxahgaqjvQUNC [facility] Physical TherapyComment on above:Right ankle pain, unspecified chronicity; Retrocalcaneal bursitis, right; Mild ankle sprain, right, sequelaStart: 45-64-0566Mnpmhgguw vaccinationInfluenza Vaccine (#1)[facility] HealthcareStart: 22-03-4722UlzdrxrtnWvumedicine [facility] Start: 29-91-9538Ggazqwphj for malignant neoplasm of breastMammogramNOPA HealthcareStart: 05-04-2024 End: 39-81-7838FR Breast - bilateral ScreeningBilateral screening mammogram Imaging Routine Breast cancer screening by mammogram Expected: 05/04/2024 (Approximate), Expires: 07/04/2025[facility] Work Phone: comment on above:Expected: 05/04/2024 (Approximate), Expires: 07/04/2025Start: 05-04-2024 End: 67-76-3988Oxumduq encounter aynssuttk95/30/2024 8:30 AM EDT Office Visit [facility] [address] [place] [phone] Tammy Day, [address] [place] [address] ArrivedSAN [facility]ATEO [facility] OBComment on above:ArrivedStart: 52-61-5098Tnjwouauo vaccinationInfluenza Vaccine (#1)[facility] HealthcarePatient EducationKnow your [facility] Work Phone: THIN PREP TIS PAP AND HR HPV DNATHIN PREP TIS PAP AND HR HPV DNA Pathology and Cytology Routine Well woman exam with routine gynecol ogical exam Ordered: 05/04/2024[facility] HealthcareComment on above:Ordered: 05/04/2024THIN PREP TIS PAP AND HR HPV DNATHIN PREP TIS PAP AND HR HPV DNA Pathology and Cytology Routine Well woman exam with routine gynecological exam Ordered: 06/08/2025[facility] ServicesComment on above:Ordered: 06/08/2025XR Ankle - right 3 ViewsXR ankle 3+ views right Imaging Routine Right ankle pain, unspecified chronicity 04/07/2025 11:01 [facility] Work Phone: Payers DatePayer CategoryPayerPolicy [id number] Health [id number] 2.16.840.1.250439.3.57[id number] 2..840.1.597548.3.57[id number] 2..840.1.812648.3.57[id number] 2.16.840.1.098906.3.57[id number] 2.16.840.1.833784.3.57[id number] 2.16.840.1.375656.3.57[id number] 2.16.840.1.708108.3.57[id number] 2.16.840.1.265437.3.57[id number] 2.16.840.1.264720.3.579.2.531 Social History DateTypeDetailFacilityStart: 05-04-2024 End: 77-08-3317Eojpwcl smoking status NHISNever smoked tobaccoNOMS Healthcare Start: 45-86-8207Vpqstpc use and exposureSmokeless tobacco non-userNOMS HealthcareStart: 05-04-2024 End: 53-59-3191Lmgtsujyv beverage intakeCurrent drinker of alcohol (finding)[facility] HealthcareStart: 05-04-2024 End: 35-94-4095Qjtecsq of Social functionNOMS HealthcareStart: 05-04-2024 End: 33-29-3661Dmqtgux use panelNOPA HealthcareStart: 42-56-8827Uvwcnxj Comment Only on special occasionsNOPA HealthcareStart: 84-91-0973Ven assigned at Not on fileNOPA HealthcareStart: 46-94-7863Bmtslnm Commentmonthly or lessNOPA HealthcareStart: 68-68-2812TcmPbippc (finding)[facility] Start: 85-90-8370Jia Assigned At BirthMarietta Memorial Hospital Start: 32-00-0539PhaVzgkwmHJZS Healthcare Goals DatePatient GoalDesired Activity/State Clinical Notes 05-04-2024 to 06-08-2025 Note Date & YqmpTgspMuoezzcl38-53-7589 History of Present illness Narrative* Twyla Rogers, HOG ROOM SUPERVISOR - 06/08/2025 8:30 AM EST Reason for Appointment: Patient ID: Kassandra Charles is a 45 y.o. female who [...] Relation Name Age of Onset Diabetes Mother Cathierandrews [place] Other (Anal Cancer) Mother Cathierandrews Romerohbun SURGICAL HISTORY Past Surgical History: Procedure Laterality [...] nursing note reviewed. Exam conducted with a multi site leasing consultant present. Vitals: Estimated body mass index is 23.18 kg/m as calculated from the following: Height [...] them. Patient can also view results via MYFXt. I reinforced importance of condom use for [...] by Twyla Rogers LPN on behalf of: Tammy Day DO documented in this encounterSaint Francis Hospital & Health ServicesXzkxfwvksf24-91-9708 History of Present illness Narrative* Sweta Glez [...] Relation Name Age of Onset Diabetes Mother Cathierine Felisha Other (Anal Cancer) Mother Cathierine [place] SOCIAL HISTORY: Social History Tobacco Use Smoking status: Never Smokeless tobacco: Never Substance Use Topics Alcohol use: Yes Comment: Only on special occasions Drug use: Not Currently Depression: Not on file REVIEW OF SYMPTOMS: The review of systems, history and current medications list are all reviewed today. OBJECTIVE: Visit Lucila Ht 5' 7 Wt 144 lb BMI [...] the record coupled with previous films from [facility] in August of 2023 does show [...] of Voltaren gel. We will refer to [facility] Physical therapy [facility] for treatment and evaluation. We did discuss injection. We will hold on that for now. We will check her back in one month for recheck and review. All of her questions are otherwise answered at length. She is discharged in stable condition. She will call with any problems, questions or concerns whatsoever. Cosigned by Lenore Griffin DO at 04/09/2025 7:32 AM EDT documented in this encounterSaint Francis Hospital & Health ServicesKivtpnzkuc74-97-3058 [place] [address] Gastroenterology H&P Signed Patient: Kassandra Charles MR#: [id number] : 1980 Acct:[id number] Age/Sex: 44 / F Adm Date: 5 Loc: Room: Type: [facility] Attending Dr: Ginny Mahoney DO Copies to: [...] Mahoney DO 08/27/24 1041 Signed By: 08/27/24 1041 [facility]01-23-2025 [address] [id number] Colonoscopy Procedure Report Signed Patient: Kassandra Charles MR#: [id number] : 1980 Acct:[id number] Age/Sex: 44 / F Adm Date: 5 Loc: Room: Type: [facility] Attending Dr: Ginny Mahoney DO Copies to: [...] slowly withdrawn with the findings as below. [place] bowel prep score was good. Findings: Terminal [...] DO 08/27/24 1041 Signed By: 08/27/24 1109 [facility]09-30-2024 History of Present illness Narrative * Alexus Tavares, HOG ROOM SUPERVISOR - 05/04/2024 8:30 AM EDT Reason for [...] nursing note reviewed. Exam conducted with a multi site leasing consultant present. Vitals: Estimated body mass index is [...] mammogram order to have scheduled/obtained. Cycles are green belt as time goes. Patient has labs drawn tomorrow for work and will have results sent to office for review. Orders Placed This Encounter Procedures Bilateral screening mammogram Follow Up: Patient is to return in one year for annual unless needed otherwise. Documented by Alexus Tavares LPN on behalf of: Tammy Day DO documented in this encounterNOPA HealthcareEvaluation note* Diagnosis Breast cancer screening by mammogram Well woman exam with routine gynecological exam Routine gynecological examination documented in this encounter [facility] HealthcareEvaluation noteNo assessment information availableSt. Anthony'S Hospital Work Phone: Evaluation note* Diagnosis Right ankle [...] in this encounter NOMS HealthcareEvaluation note* Diagnosis Well woman exam with routine gynecological exam Routine gynecological examination Encounter for screening mammogram for malignant neoplasm of breast documented in this encounter NOMS HealthcareHistory and physical note Author Ginny Mahoney [facility] HospitalNote Date/TimeJanuary 2024 11:52am [place] [address] Gastroenterology H&P Signed Patient: Kassandra Charles MR#: [id number] : 1980 Acct:[id number] Age/Sex: 44 / F Adm Date: 5 Loc: Room: Type: [facility] Attending Dr: Ginny Mahoney DO Copies to: [...] Ginny Mahoney DO 08/27/24 104 Signed By: <Electronically signed by Ginny Mahoney DO> 08/27/241040 [facility] Work Phone: Reason for visit Narrative* Consultation (Routine) - AuthorizedSpecialtyDiagnoses / ProceduresReferred By ContactReferred To ContactPhysical Therapy Diagnoses Right ankle pain, unspecified chronicity Retrocalcaneal bursitis, right Mild ankle sprain, right, sequela Procedures PA OFFICE/OUTPATIENT NEW HIGH MDM 60 MINUTES Kahtyadelilah Lenore Swan, DO [address] [place] [address] Phone: tel: fax: Ana Fernandez, PT Referral IDStatusReasonStart DateExpiration DateVisits RequestedVisits [id number] Consult and Treat / [facility] HealthcareReason for visit Narrative* Consultation (Routine) - Authorized SpecialtyDiagnoses / ProceduresReferred By ContactReferred To ContactPhysical Therapy Diagnoses Right ankle pain, unspecified chronicity Retrocalcaneal bursitis, right Mild ankle sprain, right, sequela Procedures PA OFFICE/OUTPATIENT NEW HIGH MDM 60 MINUTES Lenore Griffin, DO [address] [place] [address] Phone: tel: fax: Ana Fernandez, PT Referral IDStatusReasonStart DateExpiration DateVisits RequestedVisits [id number] Consult and Treat /[id number] [facility] Healthcare Summary Purpose Family History Relationship Condition Age at Onset Recorded Date/T adtii mother Malignant neoplasm of colon Unknown Diabetes [...] and content) DATE CREATED AUTHOR 05/31/2022 [facility] DATE CREATED AUTHOR AUTHOR'S ORGANIZ ATION 09/08/2024 [facility] DATE CREATED AUTHOR AUTHOR'S ORGANIZ ATION 06/09/2025 [facility] EPIC Care Teams (unrecognized sec tion and content) Team MemberRelationshipSpecialtyStart DateEnd Date Louie Yates MD [address] [place] [address] PCP - Generalmily Medicine09/05/23Team MemberRelationshipSpecialtyStart DateEnd Date [place] [address] PCP - [facility] Medicine09/05/23 Team Status: Active Member Role [...] DateEnd Date Louie Yates MD PCP - [facility] Medicine09/05/23Team MemberRelationshipSpecialtyStart DateEnd Date Louie Yates MD PCP - Generalmi Medicine09/05/23Team MemberRelationshipSpecialtyStart DateEnd Date Louie Yates MD PCP - Generalmily Medicine09/05/23Team MemberRelationshipSpecialtyStart DateEnd Date Louie Yates MD [facility]CP - [facility]09/05/23Team MemberRelationshipSpecialtyStart DateEnd Date Louie Yates MD PCP - [facility] Medicine09/05/23Team MemberRelationshipSpecialtyStart DateEnd Date Louie Yates MD PCP - [facility]09/05/23Team MemberRelationshipSpecialtyStart DateEnd Date Louie Yates MD PCP - [facility]09/05/23 Reason for Visit (unrecogniz ed section and content) ReasonCommentsWell Women VisitReasonCommentsPainReasonCommentsGynecologic Exam FOR RECORDS PERTAINING TO PATIENTS WHO ARE [...] BE BASED ON THE PRIMARY CLINICAL RECORDS. [facility]. provides no warranty or guarantee of the accuracy or completeness of information in this document.
--- OUTSIDE RECORDS SUMMARY | 2025-06-11 07:37 | XMS_ITS | Clinical Summary ---
Author Organization [facility] Address [address] [facility] [place] [address] Care Team Providers Care Hr Systems Analyst Name Role Phone Louie Yates MD Primary Care Provider [phone] Allergies Active AllergyReactionsCriticalityNoted PwnxQoxlwukjJtynjntdCppvpoc68/25/2023 Other Reaction(s): Unknown Reaction Medications No known medications Active Problems No known active problems Encounters DateTypeDepartmentCare VvxuFpbuhsltrkp11/04/2025 8:30 AM ESTOffice Visit [facility] [address] [place] [address] Brice Day, Well woman exam with routine gynecological exam; Encounter for screening mammogram for malignant neoplasm of awxerq6806/08/2025 Clinisync Result Encounter [facility] External Department Unsolicited Brice Day, DO 06/08/2025amb flowsheet [facility] [address] [place] [address] Brice Day, DO 06/07/20252222Debamv76/24/2025 7:30 AM EDTTreatment [facility] [address] [facility] [address] [place] [address] Nico Elkins, FULL TIME Right ankle pain, unspecified chronicity (Primary Dx); Retrocalcaneal bursitis, right; Mild ankle sprain, right, vbknegp6104/28/2025amboo flowsheet [facility] [address] [facility] [address] [place] [address] Nico Elkins, FULL TIME 04/28/20250162Bwoayt88/18/2025 9:00 AM EDTEvaluation [facility] [address] [facility] [address] [place] [address] Fernandez Kathryn, PT Right ankle pain, unspecified chronicity (Primary Dx); Retrocalcaneal bursitis, right; Mild ankle sprain, right, qfgjzdb8504/22/2025Plan of Care Documentation [facility] [address] [facility] [address] [place] [address] 04/22/2025amboo flowsheet [facility] [address] [facility] [address] [place] [address] JimJose MKathryn, PT 04/22/20257973Tgsfpl89/03/2025 2:15 PM EDTOffice Visit [facility] [address] [place] [address] Devonte Dillon, DO Right ankle pain, unspecified chronicity (Primary Dx); Retrocalcaneal bursitis, right; Mild ankle sprain, right, xrwunzi1504/07/2025 11:05 AM EDTAncillary Procedure [facility] [address] [facility] [place] [address] 04/07/20259513Ugfdfh75/29/2025Travelfrom Last 3 Months Family History Medical HistoryRelationNameCommentsAnal CancerMotherCathierine RathbunDiabetes MotherCathierine RathbunRelationNameStatusCommentsFatherAliveMotherCathierine RathbunAlive Social History Tobacco UseTypesPacks/DayYears UsedDateSmoking Tobacco: NeverSmokeless Tobacco: Never Tobacco Cessation:Counseling Given: Not Answered Alcohol UseStandard Drinks/WeekCommentsYes0 (1 standard drink = 0.6 oz pure alcohol)Only on special occasionsCommentsNoSex and Gender Information ValueDate RecordedSex Assigned at BirthNot on fileLegal DryPgtbls06/15/2023 6:55 PM EDTGender IdentityNot on fileSexual OrientationNot on file Last Filed Vital Signs Vital SignReadingTime TakenCommentsBlood Vkurzfeh637/8209 8:35 AM EDT Pulse--Temperature--Respiratory Rate--Oxygen Saturation--Inhaled Oxygen Concentration--Femhnb10.1 kg (148 lb)06/08/2025 8:37 AM OBMXdhnop699.2 cm (5' 7 )06/08/2025 8:37 AM ESTBody Mass Index23.18108/08/2024 8:37 AM EST Plan of Treatment DateTypeDepartmentCare Team (Latest Contact Info)Fjpctudwaxs98/10/2026 8:30 AM ESTProcedure Visit [facility] [address] [facility] [address] Brice Day DO [address] [facility] [place] [address] Procedures Procedure NamePriorityDate/TimeAssociated DiagnosisCommentsIGP,APTIMA HPV,AGE XXTWJiqxwov65/04/2025 8:30 AM EST XR ANKLE 3+ VIEWS NYGBGTbnapvq96/03/2025 11:01 AM EDT Right ankle pain, unspecified chronicity from Last 3 Months Results * IGP,APTIMA HPV,AGE GDLN (06/08/2025 8:30 AM EST)ComponentValueRef RangeTest MethodAnalysis TimePerformed AtPathologist SignatureAGE GDLN ACOG TESTINGNote. TBHComment: ?? TESTS ? RESULT ??FLAG ??UNITS ?REF RANGE ??LAB ?? Clinician Provided Cytology Information ?? Source.............Cervix;Endocervix ?? No. of containers..01 ThinPrep Vial Age Algo ACOG Hilda... ??30-65 ? 01 ?FLAG LEGEND: ?L-Low Normal,H-High Normal,LL-Alert Low,HH-Alert High <-Panic Low,>-Panic High,A-Abnormal,AA-Critical Abnormal Performed at: 01 =G ?[facility] ?? [address] [place] ??[address] ?? Lisa Whyte MD, IGP, APTIMA HPV, RFX 16/18,45Note.TBHComment: ?? TESTS ? RESULT ??FLAG ??UNITS ?REF RANGE ??LAB DIAGNOSIS: ?02 ?? NEGATIVE FOR INTRAEPITHELIAL LESION OR MALIGNANCY. Specimen adequacy: ?02 ?? Satisfactory for evaluation. ??Endocervical and/or squamous metaplastic ?? cells (endocervical component) are present. Performed by: ? 02 ?? Margoth Curtis, Fire Protection Specialist (ASCP) . ? 02 Note: ? Note ?02 ?? The Pap smear is a screening test designed to aid in the ?? detection of premalignant and malignant conditions of the ?? uterine cervix. ??It is not a diagnostic procedure and ?? should not be used as the sole means of detecting cervical ?? cancer. ??Both false-positive and false-negative reports do ?? occur. Test Methodology: ? Note ?02 ?? This liquid based ThinPrep(R) pap test was interpreted ?? using the Level Four Software(R) Genius(TM) Cervical Algorithm whole ?? slide imaging system. HPV Genotype Reflex ?? Note ?02 ?? Criteria not met, HPV Genotype not performed. ?FLAG LEGEND: ?L-Low Normal,H-High Normal,LL-Alert Low,HH-Alert High <-Panic Low,>-Panic High,A-Abnormal,AA-Critical Abnormal Performed at: 02 WB ?[facility] ?? [address] [place], [place] ??[address] ?? Lisa Whyte MD, HPV APTIMANegativeNegativeTBHComment: This nucleic acid amplification test detects fourteen high- risk HPV types (16,18,31,33,35,39,45,51,52,56,58,59,66,68) without differentiation. Performed at: ??=G - [facility] ??[id number] Vegetable Cook: Lisa Whyte MD, Phone: ??[phone] Performed at: ??WB - [facility] ??[id number] Vegetable Cook: Lisa Whyte MD, Phone: ??[phone] Specimen (Source)Anatomical Location / LateralityCollection Method / Volume Collection TimeReceived Time06/08/2025 8:30 AM EST06/08/2025 12:12 PM EST Narrative [facility]AD[facility] - 06/10/2025 9:09 AM EST BRUSH-SPATULA CERVIX ENDOCERVIX Authorizing ProviderResult TypeResult StatusCorey BarbArtesia General Hospital BLOOD ORDERABLES Final ResultPerforming OrganizationAddressCity/State/ZIP CodePhone Number CLINIS[facility]NC [facility] * XR ankle 3+ views right (04/07/2025 [...] the record coupled with previous films from [facility] in August of 2023 does show some spurring off the tip of the medial and lateral malleolus. ??Ankle mortise is well maintained. ?? No evidence of fracture or instability pattern. ?? Authorizing ProviderResult TypeResult StatusDavid A Pocos DOIMG XR PROCEDURES Final Result from Last 3 Months Insurance * Guarantor: Margoth Charles TypeRelation to PatientDate of BirthPhone Billing AddressPersonal/BtcdlwCclt[id number] [address] Care Teams Team MemberRelationshipSpecialtyStart DateEnd Louie Yates MD PCP - GeneralFamily Medicine09/05/23
--- OUTSIDE RECORDS SUMMARY | 2025-06-11 07:37 | XMS_ITS | Encounter Summary ---
Author Organization [facility] Address [address] [facility] [place] [address] Care Team Providers Care Accountant Budget Name Role Phone Louie Yates MD Primary Care Provider [phone] Encounter Details DateTypeDepartmentCare Team (Latest Contact Info)Uguogrktdwa38/03/2025Travel Social History Tobacco UseTypesPacks/DayYears UsedDateSmoking Tobacco: NeverSmokeless Tobacco: NeverAlcohol UseStandard Drinks/WeekCommentsYes0 (1 standard drink = 0.6 oz pure alcohol)Only on special occasionsCommentsNoSex and Gender Information ValueDate RecordedSex Assigned at BirthNot on fileLegal WibIsgtzz83/15/2023 6:55 PM EDTGender IdentityNot on fileSexual OrientationNot on filedocumented as of this encounter Plan of Treatment DateTypeDepartmentCare Team (Latest Contact Info)Hunowadyrxf69/10/2026 8:30 AM ESTProcedure Visit [facility] [place] [facility] [address] [place] [address] Brice Day DO [address] [facility] [address] [place], [place] [id number] documented as of this encounter Visit Diagnoses Not on filedocumented in this encounter Care Teams Team MemberRelationshipSpecialtyStart DateEnd Date Louie Yates MD PCP - GeneralFamily Medicine09/05/23documented as of this encounter
--- OUTSIDE RECORDS SUMMARY | 2025-06-11 07:37 | XMS_ITS | Encounter Summary ---
Author Organization [facility] Address [address] [facility] [place] [address] Care Team Providers Care Director Engineering Name Role Phone Louie Yates MD Primary Care Provider [phone] Encounter Details DateTypeDepartmentCare Team (Latest Contact Info)Lodyaxlxfps84/09/2024Clinisync Result Encounter [facility] External Department Unsolicited Brice Day, DO [address] [place], [place] [id number] Social History Tobacco UseTypesPacks/DayYears UsedDateSmoking Tobacco: NeverSmokeless Tobacco: NeverAlcohol UseStandard Drinks/WeekCommentsYes0 (1 standard drink = 0.6 oz pure alcohol)Only on special occasionsCommentsNoSex and Gender Information ValueDate RecordedSex Assigned at BirthNot on fileLegal EhqVemvvh64/15/2023 6:55 PM EDTGender IdentityNot on fileSexual OrientationNot on filedocumented as of this encounter Plan of Treatment DateTypeDepartmentCare Team (Latest Contact Info)Mbpwkslberx86/10/2026 8:30 AM ESTProcedure Visit NOMFlory [place] [facility] [address] [place] [address] Brice Day DO [address] [place] [address] documented as of this encounter Procedures Procedure NamePriorityDate/TimeAssociated DiagnosisCommentsMM TOMOSYNTHESIS SCREENING BI10/04/2024 3:08 PM EDT documented in this encounter Results * MM TOMOSYNTHESIS SCREENING BI (05/13/2024 3:08 PM EDT)Anatomical Region LateralityModalityOtherSpecimen (Source)Anatomical Location / Laterality Collection Method / VolumeCollection TimeReceived Time05/13/2024 3:08 PM EDT Narrative 05/13/2024 3:08 PM EDT [facility] ?[address] ? [place], [facility] ? Mammography Report ? Signed ? Patient: MAHL,MARGOTH L ?MR#: [id number] ?? : 1980 ?Acct:[id number] ?? Age/Sex: 44 / F ?ADM Date: 05/13/24 ?? Loc: MAMMO ? Attending Dr: Brice Day D.O. ? Ordering Physician: Brice Day D.O. ?Results: ? Date of Service: 05/13/24 ?Follow Up: ? Procedure(s): MM tomosynthesis screening BI ?? Accession Number(s): [id number] ? cc: Brice Day D.O.; Physician,Non-Staff M.D. ? Patient Name: ? MARGOTH MAHL ? MR#: [id number] ? : 1980 ? Exam Date: 05/13/2024 [...] at age 47. ? LOCATION: ? [facility] ? BREAST COMPOSITION: ? The breasts are [...] 1508 ? DD/ 1508 ? TD/TT: ? Board Hammer Operator: Procedure Note Radiology, Radiologist, MD - 05/13/2024 [place] [address] Mammography Report Signed Patient: MARGOTH ARIZMENDI LMR#: [id number] : 1980Acct:[id number] Age/Sex: 44 / FADM Date: 05/13/24 Loc: MAMMO Attending Dr: Brice Day D.O. Ordering Physician: Brice Day D.O.Results: Date of Service: 05/13/24Follow Up: Procedure(s): MM tomosynthesis screening BI Accession Number(s): [id number] cc: Brice Day D.O.; Physician,Non-Staff Concepción Patient Name: MARGOTH ARIZMENDI MR#: [id number] : 1980 Exam Date: 05/13/2024 Ordering Doctor: DR Brice Day . RADIOLOGY REPORT PROCEDURE: MM TOMOSYNTHESIS SCREENING BI COMPARISON: MM TOMOSYNTHESIS SCREENING BI, 05/10/2023. MG MAMM TBBYED4W [place] CAD, 05/07/2022. INDICATIONS: Screening for malignant neoplasm Calculator Name NCI Breast Cancer Risk Assessment Tool 5 Year Breast Cancer Risk 0.70% Lifetime Breast Cancer Risk 10.90% Personal Breast Cancer No Personal Ovarian Cancer No Treatments None Family Cancers Mother with rectal cancer at age 45. LOCATION: [facility] BREAST COMPOSITION: The breasts are extremely dense, [...] M.D. Signed By:05/13/24 1508 DD/ 1508 TD/TT: Board Hammer Operator: Authorizing ProviderResult TypeResult StatusCorey Barb DOCLINISYNC IMAGINGFinal Result documented in this encounter Visit Diagnoses Not on filedocumented in this encounter Care Teams Team MemberRelationshipSpecialtyStart DateEnd Date Louie Yates MD PCP - GeneralFamily Medicine09/05/23documented as of this encounter
--- OUTSIDE RECORDS SUMMARY | 2025-06-11 07:37 | XMS_ITS | Encounter Summary ---
Author Organization [facility] Address [address] [facility] [place] [address] Care Team Providers Care Life Insurance Underwriter Name Role Phone Louie Yates MD Primary Care Provider [phone] Encounter Details DateTypeDepartmentCare Team (Latest Contact Info)Zxdpoyqffys74/04/2025linisync Result Encounter [facility] External Department Unsolicited Brice Day, DO [address] [place], [place] [id number] Social History Tobacco UseTypesPacks/DayYears UsedDateSmoking Tobacco: NeverSmokeless Tobacco: NeverAlcohol UseStandard Drinks/WeekCommentsYes0 (1 standard drink = 0.6 oz pure alcohol)Only on special occasionsCommentsNoSex and Gender Information ValueDate RecordedSex Assigned at BirthNot on fileLegal NvmEulnyq15/15/2023 6:55 PM EDTGender IdentityNot on fileSexual OrientationNot on filedocumented as of this encounter Plan of Treatment DateTypeDepartmentCare Team (Latest Contact Info)Yuypqbmqzap99/10/2026 8:30 AM ESTProcedure Visit [facility] [place] [facility] [address] [place] [address] Brice Day DO [address] [place] [address] documented as of this encounter Procedures Procedure NamePriorityDate/TimeAssociated DiagnosisCommentsIGP,APTIMA HPV,AGE JFABAiqbthg36/04/2025 8:30 AM EST documented in this encounter Results * IGP,APTIMA HPV,AGE GDLN (06/08/2025 8:30 [...] at: 01 =G ?[facility] ?? [address] [place], [place] ??[address] ?? Lisa Whyte MD, IGP, APTIMA HPV, RFX 16/18,45Note.TBHComment: ?? TESTS ? RESULT ??FLAG ??UNITS ?REF RANGE ??LAB DIAGNOSIS: ?02 ?? NEGATIVE FOR INTRAEPITHELIAL LESION OR MALIGNANCY. Specimen adequacy: ?02 ?? Satisfactory for evaluation. ??Endocervical and/or squamous metaplastic ?? cells (endocervical component) are present. Performed by: ? 02 ?? Margoth Curtis Exterminator Termite (ASCP) . ? 02 Note: ? Note [...] pap test was interpreted ?? using the Storytree(R) Genius(TM) Cervical Algorithm whole ?? slide imaging system. HPV Genotype Reflex ?? Note ?02 ?? Criteria not met, HPV Genotype not performed. ?FLAG LEGEND: ?L-Low Normal,H-High Normal,LL-Alert Low,HH-Alert High <-Panic Low,>-Panic High,A-Abnormal,AA-Critical Abnormal Performed at: 02 WB ?[facility] ?? [address] [place], [place] ??[address] ?? Lisa Whyte MD, HPV APTIMANegativeNegativeTBHComment: This nucleic acid amplification test detects fourteen high- risk HPV types (16,18,31,33,35,39,45,51,52,56,58,59,66,68) without differentiation. Performed at: ??=G - [facility] [address] ??[id number] Trial Consultant: Lisa Whyte MD, Phone: ??[phone] Performed at: ??WB - [facility] ??[id number] Trial Consultant: Lisa Whyte MD, Phone: ??[phone] Specimen (Source)Anatomical Location / LateralityCollection Method / Volume Collection TimeReceived Time06/08/2025 8:30 AM EST06/08/2025 12:12 PM EST Narrative [facility] - 06/10/2025 9:09 AM EST BRUSH-SPATULA CERVIX ENDOCERVIX Authorizing ProviderResult TypeResult StatusCorey Barb DOLAB BLOOD ORDERABLES Final ResultPerforming OrganizationAddressCity/State/ZIP CodePhone Number [facility]IN[facility] documented in this encounter Visit Diagnoses Not on filedocumented in this encounter Care Teams Team MemberRelationshipSpecialtyStart DateEnd Date Louie Yates MD PCP - GeneralFamily Medicine09/05/23documented as of this encounter
--- OUTSIDE RECORDS SUMMARY | 2025-06-11 07:37 | XMS_ITS | Encounter Summary ---
Author Organization [facility] Address [address] [facility] [place] [address] Care Team Providers Care Development Team Lead Name Role Phone Louie Yates MD Primary Care Provider [phone] Encounter Details DateTypeDepartmentCare Team (Latest Contact Info)Zviodopemil54/04/2025amboo flowsheet [facility] [address] [place] [address] Brice Day, DO [address] [facility] [address] [place], [place] [address] Social History Tobacco UseTypesPacks/DayYears UsedDateSmoking Tobacco: NeverSmokeless Tobacco: NeverAlcohol UseStandard Drinks/WeekCommentsYes0 (1 standard drink = 0.6 oz pure alcohol)Only on special occasionsCommentsNoSex and Gender Information ValueDate RecordedSex Assigned at BirthNot on fileLegal LbyFfjwbf64/15/2023 6:55 PM EDTGender IdentityNot on fileSexual OrientationNot on filedocumented as of this encounter Plan of Treatment DateTypeDepartmentCare Team (Latest Contact Info)Hbpkwvwnpza32/10/2026 8:30 AM ESTProcedure Visit N[facility] [address] [place] [address] Brice Day, DO [address] [place], [facility] documented as of this encounter Visit Diagnoses Not on filedocumented in this encounter Care Teams Team MemberRelationshipSpecialtyStart DateEnd Date Louie Yates MD PCP - GeneralFamily Medicine09/05/23documented as of this encounter
== END 2025-06-11 07:35 | disposition home or self-care (01) ==
LOC: MAMMO 07:34
PROVIDERS: Visit Provider Obstetrics & Gynecology
DX: Z12.31 Encounter for screening mammogram for malignant neoplasm of breast (principal); Z80.8 Family history of malignant neoplasm of other organs or systems
CPT/HCPCS: 77063; 77067